=== PATIENT | female | born 1930 | race Caucasian/White ===

== ENCOUNTER 2016-07-28 16:13 | Emergency (ER) | payer MEDICARE, OTHER ==
[~2016-07-28] VITALS: Ht 167.6 cm; Wt 56.8 kg
[~2016-07-28 16:13] MED LIST: ACET-171 PO; AMOX-366 PO; ASPI-973 PO; CALC500T9 PO; CALC600T12 PO; CHOL100045 PO; CRAN1TAB5 PO; CYAN25003 SL; DOCU-41 PO; LACT1CAP67 PO; LEVO50TA83 PO; LIDO700A6 TP; LOPE2CAP PO; LORA0.5T PO; METH500T5 PO; ONDA4TAB9 PO; POLY17PO6 PO; SENN8.6C6 PO
[2016-07-28 16:32] VITALS: BP 200/82; PULSE 90; RESP 20; O2SAT 96
[2016-07-28 16:49] LABS: BASOPHILS % (AUTO) 0.2 % (0-3); EOSINOPHILS % (AUTO) 2.1 % (0-5); Mean Corpuscular Hemoglobin 29.7 pg (27.0-35.0); NEUTROPHILS % (AUTO) 84.6 % (40-74); Platelet Count 240 bil/L (150-400)
[2016-07-28 17:01] VITALS: BP 140/60; PULSE 88; RESP 16; O2SAT 96
[2016-07-28 17:14] LABS: TROPONIN T < 0.010 ug/L (0.0-0.011)
--- NOTE | 2016-07-28 17:39 | DRSVH ---
PROCEDURE: X-RAY CHEST ONE VIEW, PORTABLE ([id number]) INDICATIONS: sob TECHNIQUE: One view of the chest was acquired. COMPARISON: [facility], CR, XR CHEST 1VW (PORTABLE), 09/16/2015, 9:13. FINDINGS: Surgical changes and devices: Cholecystectomy clips. Lungs and pleura: No pleural effusions or pneumothorax. Lungs are clear of acute opacities. Multip le calcified nodules projecting over the right lung is stable in appearance. Mediastinum: Mediastinal contours appear normal. Heart size is normal. Bones and chest wall: No suspicious bony lesions. Overlying soft tissues appear unremarkable. IMPRESSION: No acute cardiopulmonary disease process. Dictated by: Blanca Arnold MD, PhD on 07/28/2016 at 17:37 Approved by: Blanca Arnold MD, PhD on 07/28/2016 at 17:37
--- NOTE | 2016-07-28 17:57 | ED.REPORT ---
HPI-URI / Cough / Cold Date of Service Jul 28, 2016 ED Provider: Ramos Rhodes DO This patient is a demented 85 year old female with a history of hypertension and chronic atrial fibrillation is brought in by EMS with flu-like symptoms that started 2 days ago. She also complains of myalgias, fever, cough, and fatigue. She denies chest pain. The patient received her seasonal influenza immunizations this year. She denies a history of COPD, asthma, or emphysema. Dena Matthews sent her to ED for a flu workup. Nursing Notes Stated Complaint: FEVER Chief Complaint: FLU/Cold Symptoms Nursing Notes Reviewed: Yes Allergies: Coded Allergies: alendronate sodium (Verified Allergy, Severe, 01/07/15) iodine (Verified Allergy, Severe, 01/07/15) promethazine (Verified Allergy, Severe, 01/07/15) vitamin E (d-alpha tocopherol) (Verified Allergy, Severe, 01/07/15) Can take internally, but not on the skin Shellfish (Verified Allergy, Intermediate, vomiting, 01/07/15) asparagus (Verified Allergy, Mild, Nausea,Vomiting, 01/07/15) SOAPCLEAN (Verified Allergy, Unknown, 01/07/15) etodolac (Verified Allergy, Unknown, 01/07/15) formaldehyde (Verified Allergy, Unknown, 01/07/15) oxycodone HCl (Verified Allergy, Unknown, nausea and vomiting, 01/07/15) acetaminophen (Verified Adverse Reaction, Intermediate, nausea and vomiting, 01/07/15) Uncoded Allergies: Clorox (Allergy, Intermediate, Rash, 03/24/11) Harsh Detergents (Allergy, Mild, Rash, 03/24/11) SHRIMP (Allergy, Unknown, 01/06/15) SOAPS (Allergy, Unknown, 01/06/15) Scheduled Amoxicillin/Clav K 875-125 mg (Augmentin 875-125 mg) 1 Each Tablet 1 TABLET PO BID Aspirin (Aspirin) 81 Mg Tablet 81 MG PO DAILY Calcium Carbonate (Calcium) 600 Mg Tablet 600 MG PO BID Cholecalciferol (Vitamin D3) (Vitamin D) 1,000 Unit Capsule 1,000 UNIT PO DAILY Cranberry Conc/C/Bacill Coag (Cranberry Tablet) 1 Each Tablet 1 EACH PO DAILY Cyanocobalamin (Vitamin B-12) (Vitamin B-12) 2,500 Mcg Tab.subl 2,500 MCG SL DAILY Lactobacillus Combination No.4 (Probiotic) 1 Each Capsule 1 EACH PO DAILY Levothyroxine (Synthroid) 50 Mcg Tablet 37.5 MCG PO DAILYAC Lidocaine (Lidoderm) 700 Mg Adh..patch 1 PATCH TP DAILY apply in the am and remove twelve hours later, pt home dose is a 5% lidoderm patch Methylcellulose (Citrucel) 500 Mg Tablet 500 MG PO DAILY Scheduled PRN Acetaminophen (Acetaminophen) 500 Mg Tablet 500 MG PO q8 PRN PRN For Pain Calcium Carbonate (Tums) 500 Mg Tab.chew 500-1,000 MG PO PRN PRN PRN For Dyspepsia or Heartburn Docusate Sodium (Colace) 100 Mg Capsule 250 MG PO DAILY PRN PRN For Constipation Loperamide (Loperamide) 2 Mg Capsule 2 MG PO Q4H PRN PRN For Diarrhea or Loose Stool give one capsule after each loose stool Lorazepam (Lorazepam) 0.5 Mg Tablet 0.5 MG PO q8 PRN PRN For Anxiety use at night for insomnia, use every 8 hours as needed for anxiety Ondansetron ODT (Zofran ODT) 4 Mg Tablet 4 MG PO QID PRN PRN For Nausea Polyethylene Glycol 3350 (Miralax) 17 Gm Powd.pack 17 GM PO PRN PRN PRN For Constipation Sennosides (Senna) 8.6 Mg Capsule 17.2 MG PO PRN For Constipation General Time Seen by MD: 17:57 Chief Complaint Fever Hx Obtained From: Patient, EMS Arrived By: Ambulance Onset Occurred: 2 days ago Symptom Duration: Since onset Severity: Current: No pain currently Severity: Maximum: No pain Pertinent Negative: Pt denies other symptoms Context: Immunization Status General: Unknown Recent Healthcare: No recent hospitalization, Recent doctor visit Similar Sx Previous: Yes Past Medical History Past Medical History Notes: PCP: Dr. Calvillo Past Medical History Dementia Hx of falls Crohn's Disease IBS Anxiety Arthritis Vitamin B12 deficiency. Vitamin B12 level 157.9 (June 28, 2011). Reports: GERD, Hyperlipidemia, Hypertension Reports: Atrial fibrillation, Thyroid disease Past Surgical History Cath ablation for PSVT Partial bowel resection Reports: Appendectomy, Cholecystectomy Smoking History Never Smoker Social History Alcohol Use: Denies alcohol use Drug Use: Denies drug use Other Social History: Lives in [facility] Ambulatory Status Independent Review of Systems Constitutional: Reports: Fatigue, Fever Respiratory: Reports: Non-productive cough Complete sys rev & neg: except as marked. Cardiovascular: Denies: Chest pain Musculoskeletal: Reports: Myalgia Physical Exam Initial Vital Signs Vital Signs (First) Date Time Temp Pulse Resp B/P Pulse Ox O2 Delivery O2 Flow Rate FiO2 07/28/16 16:32 37.4 90 20 200/82 96 Nasal Cannula 2 Initial VS: Reviewed Head / Eyes: Atraumatic, Normocephalic, PERRL Neck: Supple, Non-tender, Full range of motion Abdomen / GI: Soft, Non-tender Extremities: Vascular intact, Neuro intact Skin: Warm, Dry, No cyanosis Neurologic: Alert, Oriented, Nonfocal Psychiatric: Mood/affect normal, Behavior normal, Normal thought content General/Constitutional: Awake, Alert, Well developed ENT: Atraumatic, Airway patent Respiratory / Chest: Atraumatic, No respiratory distress Wheezing / Retractions: Positive: Wheezing mild (Faint left upper lobe) Bronchospasms Cardiovascular: Heart rate NL, Regular rhythm, Heart sounds NL, No murmurs Interpretation & Diagnostics Interpretation & Diagnostics: POSITIVE FOR FLU A NEGATIVE FOR FLU B Lab Results Interpretation Result Diagram: 07/28/16 1623 07/28/16 1623 Test 07/28/16 16:23 07/28/16 18:07 07/28/16 19:29 White Blood Count 10.3th/mm3 (3.8-10.1) Red Blood Count 4.71mil/mm3 (3.90-5.20) Hemoglobin 14.0g/dL (12.0-15.6) Hematocrit 41.0% (35.0-46.0) Mean Corpuscular Volume 87.0fL (81-100) Mean Corpuscular Hemoglobin 29.7pg (27.0-35.0) Mean Corpuscular Hemoglobin Concent 34.1% (32.0-37.0) Red Cell Distribution Width 13.6% (12.3-15.4) Platelet Count 240bil/L (150-400) Neutrophils (%) (Auto) 84.6% (40-74) Lymphocytes (%) (Auto) 5.7% (14-46) Monocytes (%) (Auto) 7.0% (4-12) Eosinophils (%) (Auto) 2.1% (0-5) Basophils (%) (Auto) 0.2% (0-3) Sodium Level 135mEq/L (134-144) Potassium Level 3.6mEq/L (3.5-5.2) Chloride Level 96mEq/L (97-108) Carbon Dioxide Level 22mmol/L (18-29) Blood Urea Nitrogen 12mg/dL (8-27) Creatinine 0.42mg/dL (0.57-1.00) Estimat Glomerular Filtration Rate 205mL/min (>59) Glucose Level 131mg/dL (60-99) Calcium Level 9.0mg/dL (8.5-10.1) Total Bilirubin 0.3mg/dL (0.0-1.2) Aspartate Amino Transf (AST/SGOT) 17U/L (0-50) Alanine Aminotransferase (ALT/SGPT) 10U/L (0-32) Alkaline Phosphatase 115U/L (25-165) Troponin T < 0.010ug/L (0.0-0.011) Pro-B-Type Natriuretic Peptide 1510pg/mL (0-738) Total Protein 6.5g/dL (6.4-8.4) Albumin 3.6g/dL (3.4-5.0) Urine Color Straw (YELLOW) Urine Appearance Clear (CLEAR,HAZY) Urine pH 6.0 (5.0-8.0) Urine Specific [place] 1.015 (1.003-1.035) Urine Protein Negativemg/dL (NEG,TRACE) Urine Glucose (UA) Negativemg/dL (NEGATIVE) Urine Ketones Negativemg/dL (NEGATIVE) Urine Occult Blood Small (NEGATIVE) Urine Nitrite Negative (NEGATIVE) Urine Bilirubin Negative (NEGATIVE) Urine Urobilinogen Normalmg/dL (NORMAL) Urine Leukocyte Esterase Negative (NEGATIVE) Urine RBC 3-10/hpf (0-2) Urine WBC 0-5/hpf (0-5) Urine Epithelial Cells Occasional/hpf (NONE-MOD) Urine Crystals None seen (NONE SEEN) Urine Bacteria Few/hpf (NONE-FEW) Urine Hyaline Casts None/lpf (NONE) Urine Granular Casts None seen (NONE SEEN) Urine Waxy Casts None seen (NONE SEEN) Urine Red Blood Cell Casts None seen (NONE SEEN) Urine White Blood Cell Casts None seen (NONE SEEN) Urine Mucus None seen (None Seen) Urine Trichomonas None seen (NONE SEEN) Urine Yeast None (NONE SEEN) Urinalysis Comment None Urine Culture Reflexed Not indicated Lactic Acid Level 1.6mmol/L (0.4-2.0) ECG Interpretation ECG Interpretation: atrial fibrillation, Rate 85 Nonspecific T abnormalities Time: 17:30 Interpreted by: ED physician X-Ray Chest Interpretation Chest Xray Interpretation: IMPRESSION: No acute cardiopulmonary disease process. Dictated by: Blanca Arnold MD, PhD on 07/28/2016 at 17:37 Interpretation / Wet Read by: Interpret - Radiologist Re-Eval/Medical Decision Source of Hx: Old records, EMS Re-Evaluation/Progress : Time of Eval: 20:04 Patient Status: Condition improved Re-Evaluation/Progress Note: Pt. rechecked. Discussed diagnosis of influenza and plan to start Tamiflu. She is feeling better and wants to go home. Ready for discharge. Pt. understands and agrees with plan. All questions have been addressed. Counseled Regarding: Diagnosis, Lab results, Need for follow-up, When/why to return to ED Discharge & Departure Impression: Primary Impression: Influenza due to influenza A virus Disposition: Home Discharge Condition All VS Reviewed: Yes Condition: Stable Patient Instructions: Influenza (ED) Additional Instructions: Thank you for entrusting your care with us today. You have influenza A. Take Tamiflu twice a day for 5 days. Drink plenty of fluids. Take your antipyretics as directed by your primary care provider. Do not take any aspirin. Follow up with your primary care provider next week for further evaluation. Return to the emergency room if you develop a fever, chills, worsening cough, shortness of breath, or any other concerning or new symptoms. Referrals: Eh Kirk MD (PCP) Scribe Attestation Portions of this note were transcribed by Lucy Reinoso and Surekha Ha I, Dr. Rhodes personally performed the history, physical exam and medical decision-making ; I reviewed and confirmed the accuracy of the information in the transcribed note. Signed by: Lucy Reinoso and Ashley Rm, 07/28/2016 and 213 copies to: Eh Kirk MD, Todd P DO Jul 28, 2016 17:57 Iva Reinoso [Lucy] Jul 28, 2016 18:42 Surekha Ha Jul 28, 2016 21:37
[2016-07-28] MEDS ORDERED: Albuterol-Ipratropium 3 mL Inhalation Solution NEB ONE (18:40)
[2016-07-28] MEDS ORDERED: 0.9% Sodium Chloride 1,000 ML IV ONE (18:40)
[2016-07-28 19:06] LABS: APPEARANCE,URINE CLEAR (CLEAR,HAZY); COLOR,URINE STRAW (YELLOW); OCCULT BLOOD,URINE SMALL (NEGATIVE); UROBILINOGEN,URINE NORMAL (NORMAL)
[2016-07-28 20:11] VITALS: PULSE 78; RESP 24; O2SAT 87
[2016-07-28 21:05] VITALS: BP 185/89; PULSE 93; RESP 20; O2SAT 94
== END 2016-07-28 21:06 | disposition home or self-care (01) ==
LOC: EDUNIT# 16:13 → EDBD 16:13 → SED 16:13
DX: J10.89 Influenza due to other identified influenza virus with other manifestations (principal); M79.1 Myalgia; R50.9 Fever, unspecified; R05 Cough; R53.83 Other fatigue; K21.9 Gastro-esophageal reflux disease without esophagitis; E78.5 Hyperlipidemia, unspecified; I10 Essential (primary) hypertension; I48.2 Chronic atrial fibrillation; E03.9 Hypothyroidism, unspecified; F03.90 Unspecified dementia, unspecified severity, without behavioral disturbance, psychotic disturbance, mood disturbance, and anxiety; Z79.82 Long term (current) use of aspirin; Z88.8 Allergy status to other drugs, medicaments and biological substances; Z91.041 Radiographic dye allergy status; Z88.6 Allergy status to analgesic agent; Z88.5 Allergy status to narcotic agent
CPT/HCPCS: 36415; 71010; 80053; 81000; 83605; 83880; 84484; 85025; 87804; 96360; 99285; J7030; J7620

== ENCOUNTER 2016-08-02 13:23 | Inpatient (IN) | payer MEDICARE, OTHER ==
[~2016-08-02] VITALS: Ht 162.6 cm; Wt 53.6 kg
[2016-08-02] VITALS (8 sets, daily range): BP systolic 142–177; BP diastolic 45–87; PULSE 66–81; RESP 16–20; O2SAT 95–99
[2016-08-02] MEDS ORDERED: 0.9% Sodium Chloride 1,000 ML IV ONE ×2 (13:34→15:55)
--- NOTE | 2016-08-02 13:34 | ED.REPORT ---
HPI-General Illness Date of Service Aug 02, 2016 ED Provider: Hipolito Plasencia Patient is an 85 year old female who presents to the ED via EMS from [facility] complaining of worsening diarrhea onset 5 days ago. Associated symptoms include headache, weakness, decreased appetite, abdominal pain, dysuria, cough, and neck pain. She denies nausea, vomiting, fever, or any other symptoms. Patient has a history of Crohn's disease. She was diagnosed with the flue 5 days ago. Nursing Notes Stated Complaint: DIARRHEA Chief Complaint: FLU/Cold Symptoms Nursing Notes Reviewed: Yes Allergies: Coded Allergies: alendronate sodium (Verified Allergy, Severe, 01/07/15) iodine (Verified Allergy, Severe, 01/07/15) promethazine (Verified Allergy, Severe, 01/07/15) vitamin E (d-alpha tocopherol) (Verified Allergy, Severe, 01/07/15) Can take internally, but not on the skin Shellfish (Verified Allergy, Intermediate, vomiting, 01/07/15) asparagus (Verified Allergy, Mild, Nausea,Vomiting, 01/07/15) SOAPCLEAN (Verified Allergy, Unknown, 01/07/15) etodolac (Verified Allergy, Unknown, 01/07/15) formaldehyde (Verified Allergy, Unknown, 01/07/15) oxycodone HCl (Verified Allergy, Unknown, nausea and vomiting, 01/07/15) acetaminophen (Verified Adverse Reaction, Intermediate, nausea and vomiting, 01/07/15) Uncoded Allergies: Clorox (Allergy, Intermediate, Rash, 03/24/11) Harsh Detergents (Allergy, Mild, Rash, 03/24/11) SHRIMP (Allergy, Unknown, 01/06/15) SOAPS (Allergy, Unknown, 01/06/15) Scheduled Aspirin (Aspirin) 81 Mg Tablet 81 MG PO DAILY Calcium Carbonate/Mag Hydrox (Antacid Chewable Tablet) 1 Each Tab.chew 2 EACH PO BID Cyanocobalamin (Vitamin B-12) (Vitamin B-12) 2,500 Mcg Tab.subl 2,500 MCG SL DAILY Hydrocodone-Acetaminophen 5-325 mg (Hydrocodone-Acetaminophen 5-325 mg) 1 Each Tablet 1 TAB PO BID at 1400 and 2000 Lactobacillus Combination No.4 (Probiotic) 1 Each Capsule 1 EACH PO DAILY Levothyroxine (Levothyroxine) 75 Mcg Tablet 37.5 MG PO DAILY Lorazepam (Lorazepam) 0.5 Mg Tablet 0.5 MG PO HS Melatonin/Pyridoxine (Melatonin 3 mg Tablet) 1 Each Tablet 1 EACH PO HS Methylcellulose (Citrucel) 500 Mg Tablet 500 MG PO DAILY Omeprazole (Omeprazole) 20 Mg Capsule.dr 20 MG PO DAILY Scheduled PRN Acetaminophen (Acetaminophen) 500 Mg Tablet 500 MG PO q8 PRN PRN For Pain Calcium Carbonate/Mag Hydrox (Antacid Chewable Tablet) 1 Each Tab.chew 1 EACH PO DAILY PRN PRN For Dyspepsia or Heartburn Docusate Sodium (Colace) 100 Mg Capsule 250 MG PO DAILY PRN PRN For Constipation Hydrocodone-Acetaminophen 5-325 mg (Hydrocodone-Acetaminophen 5-325 mg) 1 Each Tablet 1 TABLET PO q6 hours PRN PRN For Pain Ibuprofen (Ibuprofen) 200 Mg Capsule 200-400 MG PO q6 hours PRN PRN Headache Loperamide (Loperamide) 2 Mg Capsule 2 MG PO Q4H PRN PRN For Diarrhea or Loose Stool give one capsule after each loose stool Lorazepam (Lorazepam) 1 Mg Tablet 0.5 MG PO q8 hours PRN PRN For Anxiety Ondansetron ODT (Zofran ODT) 4 Mg Tablet 4 MG PO QID PRN PRN For Nausea Polyethylene Glycol 3350 (Miralax) 17 Gm Powd.pack 17 GM PO DAILY PRN PRN For Constipation General Time Seen by MD: 13:33 [facility] Chief Complaint Diarrhea Hx Obtained From: Patient, EMS Arrived By: Ambulance Sudden in Onset?: Yes Onset Occurred: 5 days ago Symptom Duration: Since onset Past Medical History Past Medical History Notes: PCP: Dr. Calvillo DNR limited Past Medical History Dementia Hx of falls Crohn's Disease IBS Anxiety Arthritis Vitamin B12 deficiency. Vitamin B12 level 157.9 (June 28, 2011). Hypothyroid Reports: GERD, Hyperlipidemia, Hypertension Reports: Atrial fibrillation, Thyroid disease Past Surgical History Cath ablation for PSVT Partial bowel resection Reports: Appendectomy, Cholecystectomy Smoking History Never Smoker Social History Alcohol Use: Denies alcohol use Drug Use: Denies drug use Other Social History: Lives in [facility] Ambulatory Status Independent Review of Systems +decreased appetite Full Review of Systems Constitutional: Reports: Weakness - generalized, Denies: Chills, Fever Respiratory: Reports: Non-productive cough GI: Reports: Abdominal pain, Diarrhea, Denies: Nausea, Vomiting Female: Reports: Dysuria Musculoskeletal: Reports: Neck pain Neurologic: Reports: Headache Complete sys rev & neg: except as marked. Physical Exam Vital Signs Vital Signs Date Time Temp Pulse Resp B/P Pulse Ox O2 Delivery O2 Flow Rate FiO2 08/02/16 17:10 74 20 176/68 96 Room Air 08/02/16 16:31 69 20 169/66 97 Room Air 08/02/16 15:30 71 18 177/45 99 Room Air 08/02/16 14:05 81 20 142/59 95 Room Air 08/02/16 13:27 36.7 71 18 150/72 97 Room Air Initial VS: Reviewed Head / Eyes: Atraumatic, Normocephalic Skin: Warm, Dry Neurologic: Alert, Oriented, Nonfocal Psychiatric: Mood/affect normal, Behavior normal, Normal thought content ENT: Mucous membranes moist Neck: Supple Respiratory / Chest: Breath sounds NL, Breath sounds = bilat, No respiratory distress Cardiovascular: Heart rate NL, Regular rhythm, Heart sounds NL, No gallop, No murmurs, No rubs Abdomen: No guarding, BS normoactive, No palpable mass Tenderness/Guarding/Rebound: Positive: Tender LLQ... Back: Non-tender Interpretation & Diagnostics Lab Results Interpretation Result Diagram: 08/02/16 1345 08/02/16 1345 Test 08/02/16 13:45 08/02/16 14:25 08/02/16 15:23 White Blood Count 16.6th/mm3 (3.8-10.1) Red Blood Count 4.37mil/mm3 (3.90-5.20) Hemoglobin 12.9g/dL (12.0-15.6) Hematocrit 37.3% (35.0-46.0) Mean Corpuscular Volume 85.4fL (81-100) Mean Corpuscular Hemoglobin 29.5pg (27.0-35.0) Mean Corpuscular Hemoglobin Concent 34.6% (32.0-37.0) Red Cell Distribution Width 13.4% (12.3-15.4) Platelet Count 228bil/L (150-400) Neutrophils (%) (Auto) 81.3% (40-74) Lymphocytes (%) (Auto) 8.8% (14-46) Monocytes (%) (Auto) 8.7% (4-12) Eosinophils (%) (Auto) 0.6% (0-5) Basophils (%) (Auto) 0.2% (0-3) Sodium Level 138mEq/L (134-144) Potassium Level 2.9mEq/L (3.5-5.2) Chloride Level 98mEq/L (97-108) Carbon Dioxide Level 23mmol/L (18-29) Blood Urea Nitrogen 14mg/dL (8-27) Creatinine 0.40mg/dL (0.57-1.00) Estimat Glomerular Filtration Rate 217mL/min (>59) Glucose Level 140mg/dL (60-99) Calcium Level 8.3mg/dL (8.5-10.1) Magnesium Level 1.3mg/dL (1.6-2.6) Total Bilirubin 0.5mg/dL (0.0-1.2) Aspartate Amino Transf (AST/SGOT) 17U/L (0-50) Alanine Aminotransferase (ALT/SGPT) 10U/L (0-32) Alkaline Phosphatase 85U/L (25-165) Troponin T < 0.010ug/L (0.0-0.011) Total Protein 6.2g/dL (6.4-8.4) Albumin 3.1g/dL (3.4-5.0) Hold [place]ila Top Tube Received (Received) Lactic Acid Level 2.6mmol/L (0.4-2.0) Urine Color Yellow (YELLOW) Urine Appearance Clear (CLEAR,HAZY) Urine pH 6.0 (5.0-8.0) Urine Specific [place] 1.015 (1.003-1.035) Urine Protein 30mg/dL (NEG,TRACE) Urine Glucose (UA) Negativemg/dL (NEGATIVE) Urine Ketones Negativemg/dL (NEGATIVE) Urine Occult Blood Trace (NEGATIVE) Urine Nitrite Negative (NEGATIVE) Urine Bilirubin Negative (NEGATIVE) Urine Urobilinogen Normalmg/dL (NORMAL) Urine Leukocyte Esterase Negative (NEGATIVE) Urine RBC 0-2/hpf (0-2) Urine WBC 0-5/hpf (0-5) Urine Epithelial Cells Few/hpf (NONE-MOD) Urine Crystals None seen (NONE SEEN) Urine Bacteria Few/hpf (NONE-FEW) Urine Hyaline Casts Rare/lpf (NONE) Urine Granular Casts None seen (NONE SEEN) Urine Waxy Casts None seen (NONE SEEN) Urine Red Blood Cell Casts None seen (NONE SEEN) Urine White Blood Cell Casts None seen (NONE SEEN) Urine Mucus Present (None Seen) Urine Trichomonas None seen (NONE SEEN) Urine Yeast None (NONE SEEN) Urinalysis Comment None Urine Culture Reflexed Not indicated ECG Interpretation ECG Interpretation: atrial fibrillation rate 90 nonspecific T abnormalties, lateral leads Time: 13:54 Interpreted by: ED physician X-Ray Chest Interpretation Chest Xray Interpretation: IMPRESSION: No acute cardiopulmonary disease. Dictated by: Сергей Walker RRA Interpreted: Blanca Arnold MD on 08/02/2016 at 14:47 Transcribed by: MARJORIE on 08/02/2016 at 14:47 View: Portable, 1 view Interpretation / Wet Read by: Interpret - Radiologist CT Abd / Pelvis Interpretation IMPRESSION: 1. Patchy opacities in the dependent lung bases suspicious for aspiration/infection. 2. Findings suspicious for intrahepatic biliary ductal dilatation poorly characterized given the lack of intravenous contrast. If further characterization is warranted, right upper quadrant ultrasound is recommended. 3. Probable prior appendectomy. Diverticulosis. No acute diverticulitis. Dictated by: Maryann Lewis M.D. on 08/02/2016 at 17:15 Approved by: Maryann Lewis M.D. on 08/02/2016 at 17:20 Study type: Abdominal CT no contrast Interpretation / Wet Read by: Interpret - Radiologist Re-Eval/Medical Decision Med Decision/Clinical Course Elderly female with several days of profuse watery diarrhea generalized weakness recent influenza. She is noted and elevated lactate and elevated white blood cell count. Chest x-ray was negative however there is concern for possible infiltrates on CT of the abdomen and pelvis which was done secondary to abdominal pain. Her unable to obtain a stool specimen, we have obtained blood cultures, she was given 2 L of normal saline and started on Rocephin and azithromycin. She will be admitted to hospitalist service Time of Eval: 15:43 Re-Evaluation/Progress Note: Rechecked patient. She reports she has not had any more diarrhea, is feeling better, but still feels "crummy". Discussed desire for admission. Patient understands and agrees with plan. All questions addressed at this time. Time of Eval: 17:39 Re-Evaluation/Progress Note: Discussed plan for admission with abx based on CT report. Patient understands and agrees with plan. All questions addressed at this time. Consultation : Referral / Consult Name: Bradley Herrera MD Consulted With: Hospitalist Call Returned at: 17:57 Product Management Analyst: Will see patient, Agrees with eval, Agrees with plan, Accepts admit Note: Discussed patient's case. Accepts admit. Counseled Regarding: Diagnosis, Lab results, Need for admission Discharge & Departure Primary Impression: Pneumonia Additional Impressions: Dehydration Generalized weakness Diarrhea Disposition: ADMITTED TO HOSPITAL Referrals: Eh Kirk MD (PCP) Scribe Attestation Portions of this note were transcribed by Bryon Fabian. I, Dr. Plasencia personally performed the history, physical exam and medical decision-making; I reviewed and confirmed the accuracy of the information in the transcribed note. Signed by: Bryon Fabian 08/02/16, 1800 copies to: Eh Kirk MD, Donald L MD Aug 02, 2016 13:34 BRYON FABIAN Aug 02, 2016 13:40
[2016-08-02] MEDS ORDERED: Ondansetron 2 mg/mL 2 mL Inj IV PRN (13:35)
[2016-08-02 14:01] LABS: BASOPHILS % (AUTO) 0.2 % (0-3); EOSINOPHILS % (AUTO) 0.6 % (0-5); MONOCYTES % (AUTO) 8.7 % (4-12); Mean Corpuscular Hemoglobin 29.5 pg (27.0-35.0); Mean Corpuscular Volume 85.4 fL (81-100); NEUTROPHILS % (AUTO) 81.3 % (40-74); Platelet Count 228 bil/L (150-400)
[2016-08-02 14:31] LABS: TROPONIN T < 0.010 ug/L (0.0-0.011)
[2016-08-02 14:34] LABS: Magnesium 1.3 mg/dL (1.6-2.6)
--- NOTE | 2016-08-02 14:48 | DRSVH ---
PROCEDURE: X-RAY CHEST ONE VIEW, PORTABLE ([id number]) INDICATIONS: leukocytosis TECHNIQUE: One view of the chest was acquired. COMPARISON: [facility], CR, XR CHEST 1VW (PORTABLE), 07/28/2016, 16:59. FINDINGS: Surgical changes and devices: None visible. Lungs and pleura: No pleural effusions or pneumothorax. Lungs are clear. No granulomatous changes redemonstrated. Mediastinum: Mediastinal contours appear normal. Heart size is normal. Bones and chest wall: No suspicious bony lesions. Overlying soft tissues appear unremarkable. IMPRESSION: No acute cardiopulmonary disease. Dictated by: Сергей Walker RRA Interpreted: Blanca Arnold MD on 08/02/2016 at 14:47 Transcribed by: MARJORIE on 08/02/2016 at 14:47 Approved by: Blanca Arnold MD, PhD on 08/02/2016 at 17:05
[2016-08-02] MEDS ORDERED: Potassium Chloride 20 mEq SR Tablet PO ONE (15:00)
[2016-08-02 15:52] LABS: APPEARANCE,URINE CLEAR (CLEAR,HAZY); COLOR,URINE YELLOW (YELLOW); OCCULT BLOOD,URINE TRACE (NEGATIVE); UROBILINOGEN,URINE NORMAL (NORMAL)
--- NOTE | 2016-08-02 17:25 | DRSVH ---
PROCEDURE: CT ABDOMEN AND PELVIS WITHOUT CONTRAST ([id number]) INDICATIONS: abdominal pain LLQ TECHNIQUE: Noncontrast 5 mm thick sections acquired from the diaphragms to the symphysis. 5 mm coronal and sagi ttal reformats were then performed. For radiation dose reduction, the following was used: automated exposure control, adjustment of mA and/or kV according to patient size. COMPARISON: None. FINDINGS: Image quality: ABDOMEN: Lung bases: Patchy airspace opacities are present in the dependent lung bases bilaterally. Solid organs: Liver and spleen are normal in size. There is likely intrahepatic biliary ductal dilat ation which is poorly characterized given the lack of intravenous contrast. Gallbladder is surgically absent. Pancreas is normal in contours. No adrenal nodules. Kidneys are normal in size, without h ydronephrosis or nephrolithiasis. Peritoneum and bowel: Unenhanced bowel loops demonstrate normal wall thickness and caliber. The appe ndix is not visualized; however surgical clips are present in the region of the cecum in the lower qu adrant suggesting prior appendectomy. There are scattered sigmoid diverticula. No evidence for divert iculitis. No free fluid or air. Nodes and vessels: No retroperitoneal or mesenteric adenopathy by size criteria. Aorta and inferior vena cava are normal in caliber. There are scattered atheromatous calcifications throughout the aort a and iliac arteries bilaterally. Miscellaneous: No ventral hernias. PELVIS: Genitourinary: Bladder wall thickness is normal. Miscellaneous: No inguinal hernias or adenopathy. Bones: No suspicious bony lesions. No vertebral body compression fractures. IMPRESSION: 1. Patchy opacities in the dependent lung bases suspicious for aspiration/infection. 2. Findings suspicious for intrahepatic biliary ductal dilatation poorly characterized given the lack of intravenous contrast. If further characterization is warranted, right upper quadrant ultrasound i s recommended. 3. Probable prior appendectomy. Diverticulosis. No acute diverticulitis. Dictated by: Maryann Lewis M.D. on 08/02/2016 at 17:15 Approved by: Maryann Lewis M.D. on 08/02/2016 at 17:20
[2016-08-02] MEDS ORDERED: cefTRIAXone Inj 2 GM in IV Premix 1 EACH IV ONE (17:40)
[2016-08-02] MEDS ORDERED: Azithromycin Inj 500 MG in Dextrose 5% w/Vial Mate 250 ML IV ONE (17:40)
[2016-08-02] MEDS ORDERED: cefTRIAXone Inj 2,000 MG in Dextrose 5% Minibag Plus 50 ML IV SCH (17:42)
[2016-08-02] MEDS ORDERED: LORA1TAB PO (18:12)
[2016-08-02] MEDS ORDERED: LEVO75TA4 PO (18:12)
[2016-08-02] MEDS ORDERED: CALC-846 PO ×2 (18:12)
[2016-08-02] MEDS ORDERED: OMEP20CA11 PO (18:12)
[2016-08-02] MEDS ORDERED: IBUP200C PO (18:12)
[2016-08-02] MEDS ORDERED: METH500T5 PO (18:12)
[2016-08-02] MEDS ORDERED: HYDR-4003 PO ×2 (18:12)
[2016-08-02] MEDS ORDERED: MELA1TAB11 PO (18:12)
--- NOTE | 2016-08-02 18:47 | NUR ---
Admit Pt admitted to [facility] [place] rm 3020 via ED, report received from Isabel Aparicio RN. Pt arrived via stretcher, was unable to transfer self.
[2016-08-02] MEDS ORDERED: 0.9% Sodium Chloride 100 ML ONE (20:40)
[2016-08-02] MEDS: HYDROcodone-APAP 5-325 mg Tablet PO PRN (21:39)
--- NOTE | 2016-08-02 21:39 | PCM.HPMED ---
Subjective Date of Service Aug 02, 2016 Primary Provider: Admitting Physician: Bradley Herrera MD Primary Care Physician: Eh Kirk MD Attending Physician: Bradley Herrera MD Chief Complaint: Generalized weakness, diarrhea, poor appetite History of Present Illness: 85-year-old female w/ afib s/p ablation not AC, Crohn's disease s/p multiple bowel resections >20yrs ago, irritable bowel syndrome with chronic intermittent diarrhea presented constellation symptoms such as generalized weakness, LLQ pain , decreased appetite, diarrhea Patient visited ED 5days ago with flu-like symptoms that started 2 days prior to visit. She also complains of myalgias, fever, cough, and fatigue at that time , noticed in [place] A virus positive on swap, sent home with Tamiflu for 5 days. Since then patient has not been feeling well, developed diarrhea more than usual, also this AM, large amount, unknown characteristics. Patient also had intermittent cough, no phlegm, no difficulty breathing. Patient thinks that the cough has not been changed with the flu medicine. ROS: Patient denied chills fevers, nausea, vomiting, abdominal pain, dysuria/ frequency Emergency room, VS stable, [id number], HR70s, RR18, 97%on RA, afebrile. labs showed leukocytosis, hypokalemia, hypomagnesemia, mildly elevated lactate, CT abd obtained given LLQ pain pt complaind, which rather showes patchy infiltrate at lung bases, received Rocephin and azithromycin, KCL40. IVF started. Review of Systems: Pertinent positives as noted in history of present illness. All other systems were reviewed and are negative Allergies Coded Allergies: alendronate sodium (Verified Allergy, Severe, 01/07/15) iodine (Verified Allergy, Severe, 01/07/15) promethazine (Verified Allergy, Severe, 01/07/15) vitamin E (d-alpha tocopherol) (Verified Allergy, Severe, 01/07/15) Can take internally, but not on the skin Shellfish (Verified Allergy, Intermediate, vomiting, 01/07/15) asparagus (Verified Allergy, Mild, Nausea,Vomiting, 01/07/15) SOAPCLEAN (Verified Allergy, Unknown, 01/07/15) etodolac (Verified Allergy, Unknown, 01/07/15) formaldehyde (Verified Allergy, Unknown, 01/07/15) oxycodone HCl (Verified Allergy, Unknown, nausea and vomiting, 01/07/15) acetaminophen (Verified Adverse Reaction, Intermediate, nausea and vomiting, 01/07/15) Uncoded Allergies: Clorox (Allergy, Intermediate, Rash, 03/24/11) Harsh Detergents (Allergy, Mild, Rash, 03/24/11) SHRIMP (Allergy, Unknown, 01/06/15) SOAPS (Allergy, Unknown, 01/06/15) Home Medications Scheduled Aspirin (Aspirin) 81 Mg Tablet 81 MG PO DAILY Calcium Carbonate/Mag Hydrox (Antacid Chewable Tablet) 1 Each Tab.chew 2 EACH PO BID Cyanocobalamin (Vitamin B-12) (Vitamin B-12) 2,500 Mcg Tab.subl 2,500 MCG SL DAILY Hydrocodone-Acetaminophen 5-325 mg (Hydrocodone-Acetaminophen 5-325 mg) 1 Each Tablet 1 TAB PO BID at 1400 and 2000 for torn rotator cuff pain Lactobacillus Combination No.4 (Probiotic) 1 Each Capsule 1 EACH PO DAILY Levothyroxine (Levothyroxine) 75 Mcg Tablet 37.5 MG PO DAILY Lorazepam (Lorazepam) 0.5 Mg Tablet 0.5 MG PO HS Melatonin/Pyridoxine (Melatonin 3 mg Tablet) 1 Each Tablet 1 EACH PO HS Methylcellulose (Citrucel) 500 Mg Tablet 500 MG PO DAILY Omeprazole (Omeprazole) 20 Mg Capsule.dr 20 MG PO DAILY Scheduled PRN Acetaminophen (Acetaminophen) 500 Mg Tablet 500 MG PO q8 PRN PRN For Pain Calcium Carbonate/Mag Hydrox (Antacid Chewable Tablet) 1 Each Tab.chew 1 EACH PO DAILY PRN PRN For Dyspepsia or Heartburn Docusate Sodium (Colace) 100 Mg Capsule 250 MG PO DAILY PRN PRN For Constipation Hydrocodone-Acetaminophen 5-325 mg (Hydrocodone-Acetaminophen 5-325 mg) 1 Each Tablet 1 TABLET PO q6 hours PRN PRN For Pain Ibuprofen (Ibuprofen) 200 Mg Capsule 200-400 MG PO q6 hours PRN PRN Headache Loperamide (Loperamide) 2 Mg Capsule 2 MG PO Q4H PRN PRN For Diarrhea or Loose Stool give one capsule after each loose stool Lorazepam (Lorazepam) 1 Mg Tablet 0.5 MG PO q8 hours PRN PRN For Anxiety Ondansetron ODT (Zofran ODT) 4 Mg Tablet 4 MG PO QID PRN PRN For Nausea Polyethylene Glycol 3350 (Miralax) 17 Gm Powd.pack 17 GM PO DAILY PRN PRN For Constipation PMH Past Medical History Dementia Hx of falls Crohn's Disease IBS Anxiety Arthritis Vitamin B12 deficiency. Vitamin B12 level 157.9 (June 28, 2011). Hypothyroid Reports: GERD, Hyperlipidemia, Hypertension Reports: Atrial fibrillation, Thyroid disease Past Surgical History Cath ablation for PSVT Partial bowel resection Reports: Appendectomy, Cholecystectomy Smoking History Never Smoker Social History Alcohol Use: Denies alcohol use Drug Use: Denies drug use Other Social History: Lives in [facility] Ambulatory Status Independent Social History Hx Alcohol Use: No Hx Substance Use: No Hx Tobacco Use: No Smoking Status: Never Smoker Exam Vital Signs Vital Sign - Last Date Time Temp Pulse Resp B/P Pulse Ox O2 Delivery O2 Flow Rate FiO2 08/02/16 17:42 36.7 74 20 176/68 96 Room Air Lab and Diagnostics Result Diagram: 08/02/16 1345 08/02/16 1345 X-Rays, CTs and MRIs PROCEDURE: CT ABDOMEN AND PELVIS WITHOUT CONTRAST ([id number]) INDICATIONS: abdominal pain LLQ TECHNIQUE: Noncontrast 5 mm thick sections acquired from the diaphragms to the symphysis. 5 mm coronal and sagittal reformats were then performed. For radiation dose reduction, the following was used: automated exposure control, adjustment of mA and/or kV according to patient size. COMPARISON: None. FINDINGS: Image quality: ABDOMEN: Lung bases: Patchy airspace opacities are present in the dependent lung bases bilaterally. Solid organs: Liver and spleen are normal in size. There is likely intrahepatic biliary ductal dilatation which is poorly characterized given the lack of intravenous contrast. Gallbladder is surgically absent. Pancreas is normal in contours. No adrenal nodules. Kidneys are normal in size, without hydronephrosis or nephrolithiasis. Peritoneum and bowel: Unenhanced bowel loops demonstrate normal wall thickness and caliber. The appendix is not visualized; however surgical clips are present in the region of the cecum in the lower quadrant suggesting prior appendectomy. There are scattered sigmoid diverticula. No evidence for diverticulitis. No free fluid or air. Nodes and vessels: No retroperitoneal or mesenteric adenopathy by size criteria. Aorta and inferior vena cava are normal in caliber. There are scattered atheromatous calcifications throughout the aorta and iliac arteries bilaterally. Miscellaneous: No ventral hernias. PELVIS: Genitourinary: Bladder wall thickness is normal. Miscellaneous: No inguinal hernias or adenopathy. Bones: No suspicious bony lesions. No vertebral body compression fractures. IMPRESSION: 1. Patchy opacities in the dependent lung bases suspicious for aspiration/ infection. 2. Findings suspicious for intrahepatic biliary ductal dilatation poorly characterized given the lack of intravenous contrast. If further characterization is warranted, right upper quadrant ultrasound is recommended. 3. Probable prior appendectomy. Diverticulosis. No acute diverticulitis. Dictated by: Maryann Lewis M.D. on 08/02/2016 at 17:15 Approved by: Maryann Lewis M.D. on 08/02/2016 at 17:20 Assessment & Plan 85-year-old female w/ afib s/p ablation not AC, Crohn's disease s/p multiple bowel resections >20yrs ago, irritable bowel syndrome with chronic intermittent diarrhea presented constellation symptoms such as generalized weakness, LLQ pain , decreased appetite, diarrhea, persistent cough, acute, active #constitutional sx, mainly GI n/v/d, also persistent cough/sputum, POA, ddx; postflu PNA vs Tamiflu adverse reaction. CT abd/pelvis showed no signs of colitis. CXR showed bibasilar opacities atelectasis vs PNA. -pt finished Tamiflu as of today, pt maintained airways, require minimal O2, respiratory sx not worse or better, s/p Rocephin/azithromycin in ED. -will trends procalcitonin, wbc, fever curve, -will hold off abx and monitor sx closely, O2 supplement as needed target>95% -stool PCR when possible #hypokalemia, hypomag, POA, due to GI loss, s/p KCL40 in ED, EKG-afib, unchanged -replete target Mg>2, K>4 chronic, stable IBS, CD s/p bowel resection, benign abdomen on exam, CT abd no acute findings. afib s/p ablation not AC, seems persistent, monitor on telemetry. Hypothyroid, continue LT4 Hyperlipidemia, Hypertension, continue home med GERD, continue PPI dispo:Patient will be admitted with inpatient status with expectation of inpatient therapy for more than 2 midnights diet:cardiac dvt ppx:LMWH Full Code Time spent 65 minutes Bradley Herrera MD Aug 02, 2016 19:20
[2016-08-02] MEDS ORDERED: Polyethylene Glycol (PEG) 17 Gm Powder PO PRN (21:40)
[2016-08-02] MEDS ORDERED: Potassium Chloride 20 mEq/15 mL 15mL Oral Soln PO ONE (22:25)
[2016-08-02] MEDS ORDERED: Magnesium Sulf 2 Gm/50mL Water 2 GM in IV Premix 1 EACH IV ONE (22:25)
[2016-08-02] MEDS: guaiFENesin DM 200-20 mg/10 mL Syrup PO PRN (23:31)
--- NOTE | 2016-08-02 23:55 | NUR ---
Pain Pt complained of generalized pain /. Administered 1) [place] PO, effective. Pt resting in bed with eyes closed. Bed locked, low position. Will continue to monitor.
[2016-08-03 02:32] VITALS: BP 145/74; PULSE 63; RESP 18; O2SAT 96
[2016-08-03 05:53] VITALS: BP 132/63; PULSE 67; RESP 16; O2SAT 95
[2016-08-03] MEDS: guaiFENesin DM 200-20 mg/10 mL Syrup PO PRN ×3 (06:10→22:56)
[2016-08-03] MEDS: Pantoprazole 40 mg ER24 Tablet PO SCH (06:12)
[2016-08-03 06:14] LABS: BASOPHILS % (AUTO) 0.4 % (0-3); EOSINOPHILS % (AUTO) 2.6 % (0-5); MONOCYTES % (AUTO) 11.6 % (4-12); Mean Corpuscular Hemoglobin 29.1 pg (27.0-35.0); Mean Corpuscular Volume 88.3 fL (81-100); NEUTROPHILS % (AUTO) 75.1 % (40-74); Platelet Count 216 bil/L (150-400)
[2016-08-03 06:53] LABS: Magnesium 1.9 mg/dL (1.6-2.6); Phosphorus 2.6 mg/dL (2.5-4.9)
[2016-08-03] MEDS: HYDROcodone-APAP 5-325 mg Tablet PO SCH ×2 (08:37→19:45)
[2016-08-03 10:52] VITALS: BP 169/53; PULSE 69; RESP 19; O2SAT 94
--- NOTE | 2016-08-03 11:26 | PCM.PNMED ---
Subjective Date of Service Aug 03, 2016 Subjective Patient was stable overnight Denied any nausea, vomiting, abdominal pain Still intermittently coughing but denied difficulty breathing Exam Vital Signs Vital Sign - Last Date Time Temp Pulse Resp B/P Pulse Ox O2 Delivery O2 Flow Rate FiO2 08/03/16 10:52 36.7 69 19 169/53 94 Room Air Intake and Output 08/02/16 08/02/16 08/03/16 Cumulative From/Thru 15:00 23:00 07:00 08/02/16 13:27 - 08/03/16 06:09 Intake Total 2000 ml 50 ml 2050 ml Balance 2000 ml 50 ml 2050 ml Intake Oral 50 ml 50 ml IV Total 2000 ml 2000 ml # Voids 2 2 # Bowel Movements 0 0 Exam Frail elderly female comfortably laying down on the bed no JVD, MMM, no LAD RRR, nl s1, s2 no mrg Coarse breathing sounds, no wheezing/crackles S,ND,NT,normoactive BS+ warm, no edema, pulses 2/2 IVs and Medications Medications Reviewed: Medications were reviewed in detail Lab and Diagnostics Result Diagram: 08/03/16 0555 08/03/16 0555 X-Rays, CTs and MRIs PROCEDURE: CT ABDOMEN AND PELVIS WITHOUT CONTRAST ([id number]) INDICATIONS: abdominal pain LLQ TECHNIQUE: Noncontrast 5 mm thick sections acquired from the diaphragms to the symphysis. 5 mm coronal and sagittal reformats were then performed. For radiation dose reduction, the following was used: automated exposure control, adjustment of mA and/or kV according to patient size. COMPARISON: None. FINDINGS: Image quality: ABDOMEN: Lung bases: Patchy airspace opacities are present in the dependent lung bases bilaterally. Solid organs: Liver and spleen are normal in size. There is likely intrahepatic biliary ductal dilatation which is poorly characterized given the lack of intravenous contrast. Gallbladder is surgically absent. Pancreas is normal in contours. No adrenal nodules. Kidneys are normal in size, without hydronephrosis or nephrolithiasis. Peritoneum and bowel: Unenhanced bowel loops demonstrate normal wall thickness and caliber. The appendix is not visualized; however surgical clips are present in the region of the cecum in the lower quadrant suggesting prior appendectomy. There are scattered sigmoid diverticula. No evidence for diverticulitis. No free fluid or air. Nodes and vessels: No retroperitoneal or mesenteric adenopathy by size criteria. Aorta and inferior vena cava are normal in caliber. There are scattered atheromatous calcifications throughout the aorta and iliac arteries bilaterally. Miscellaneous: No ventral hernias. PELVIS: Genitourinary: Bladder wall thickness is normal. Miscellaneous: No inguinal hernias or adenopathy. Bones: No suspicious bony lesions. No vertebral body compression fractures. IMPRESSION: 1. Patchy opacities in the dependent lung bases suspicious for aspiration/ infection. 2. Findings suspicious for intrahepatic biliary ductal dilatation poorly characterized given the lack of intravenous contrast. If further characterization is warranted, right upper quadrant ultrasound is recommended. 3. Probable prior appendectomy. Diverticulosis. No acute diverticulitis. Dictated by: Maryann Lewis M.D. on 08/02/2016 at 17:15 Approved by: Maryann Lewis M.D. on 08/02/2016 at 17:20 Assessment & Plan 85-year-old female w/ afib s/p ablation not AC, Crohn's disease s/p multiple bowel resections >20yrs ago, irritable bowel syndrome with chronic intermittent diarrhea presented constellation symptoms such as generalized weakness, LLQ pain , decreased appetite, diarrhea, persistent cough, acute, active #constitutional sx, mainly GI n/v/d, also persistent cough/sputum, POA, ddx; postflu PNA vs Tamiflu adverse reaction. CT abd/pelvis showed no signs of colitis. CXR showed bibasilar opacities atelectasis vs PNA. -pt finished Tamiflu prior to admission, pt maintained airways, require minimal O2, respiratory sx not worse or better, s/p Rocephin/azithromycin in ED. -pt clinically stable with procalcitonin remained low, wbc trending down, remained afebrile, -continue to hold off abx and monitor sx closely, O2 supplement as needed target >95% -stool PCR when possible #hypokalemia, hypomag, POA, due to GI loss, s/p KCL40 in ED, EKG-afib, unchanged , normalized with repletion -replete if needed target Mg>2, K>4 chronic, stable IBS, CD s/p bowel resection, benign abdomen on exam, CT abd no acute findings. afib s/p ablation not AC, seems persistent, monitor on telemetry. Hypothyroid, continue LT4 Hyperlipidemia, Hypertension, continue home med GERD, continue PPI dispo:likely in 1-2days, appreciate PT eval. diet:cardiac, dvt ppx:LMWH Full Code VTE Mechanical Devices: Venous Foot Pump Time spent 35min Bradley Herrera MD Aug 03, 2016 11:26
--- NOTE | 2016-08-03 11:55 | NUR ---
Evaluation completed. Please go to "Notes" then click on "Assessments and Notes" (bottom left corner of screen). Then select appropriate discipline tab on top of screen.
[2016-08-03 14:35] VITALS: BP 163/74; PULSE 75; RESP 18; O2SAT 96
[2016-08-03] MEDS: HYDROcodone-APAP 5-325 mg Tablet PO PRN (15:29)
--- NOTE | 2016-08-03 16:08 | NUR ---
Shift note Pleasant pt, able to call for help when needed. Worked with ST today, diet changed to Soft [place] thick. Pt aware of change and has been compliant. Due to limited movement, pt requires Q2hr turns. Pt c/o severe pain in L shoulder from torn rotator cuff years past. MD aware. Pain meds available q4. Bed in low position, call light in reach, will continue with frequent rounding.
--- NOTE | 2016-08-03 16:22 | NUR ---
Social Work-initial assessment: Data:See initial assessment Pt is a 85 y/o female who was admitted on 08/02/16 for diarrhea per H&P. Pt's insurance is [facility] and PCP is Eh Kirk Md. EMR Reviewed. Pt's readmission score is 4. SW met with pt at bedside to discuss discharge planning, SW role explained. Pt resides at [facility] where she uses a w/c at baseline. Pt has no HH history, but has been to SNF. Pt has no prison care or VA benefits. SW discussed DPOA/ advanced directive and pt has completed this, SW encouraged a copy to be brought in. PT evaluation is pending. SW to follow up with [facility] tomorrow. SW will continue to follow. Assessment:Pt who resides at [facility]. Plan:Pt to likely discharge back to [facility]. SW to follow up with [facility] tomorrow. PT evaluation is pending.SW will continue to follow. JONAS Lawrence Addendum: 08/03/16 at 1625 by CARLOS BISHOP SS Amended: Links added.
--- NOTE | 2016-08-03 17:07 | NUR ---
Case Management: IMM explained to patient at 1614 but patient wanted me to speak with her daughter Xi Landry [phone] first. So I called Xi and explained IMM--she verbally expressed complete understanding. Pt then willing to sign IMM, original placed in chart, copy given to the patient. Lizzette Saba RN
[2016-08-03] MEDS: Ondansetron 2 mg/mL 2 mL Inj IVPUSH PRN (19:45)
[2016-08-03 19:57] VITALS: BP 201/93; PULSE 87; RESP 18; O2SAT 95
[2016-08-03] MEDS ORDERED: LORazepam 0.5 mg Tablet PO SCH (21:00)
--- NOTE | 2016-08-04 03:07 | NUR ---
Cough Pt complained of coughing. Administered Robitussin, effective. Resting with eyes closed. Will continue to monitor.
[2016-08-04] MEDS: HYDROcodone-APAP 5-325 mg Tablet PO PRN (03:15)
--- NOTE | 2016-08-04 03:18 | NUR ---
PAIN Pt complained of generalized pain 09/16. Administered 1) [place]. Resting with eyes closed. Will continue to monitor.
[2016-08-04 04:46] VITALS: BP 139/77; PULSE 66; RESP 18; O2SAT 94
--- NOTE | 2016-08-04 05:17 | NUR ---
BP Pt BP 199/80. notified. No new orders. Rechecked: 139/77. Will continue to monitor
[2016-08-04] MEDS: Pantoprazole 40 mg ER24 Tablet PO SCH (06:14)
[2016-08-04 06:45] LABS: BASOPHILS % (AUTO) 0.4 % (0-3); EOSINOPHILS % (AUTO) 4.3 % (0-5); MONOCYTES % (AUTO) 12.1 % (4-12); Mean Corpuscular Volume 88.3 fL (81-100); NEUTROPHILS % (AUTO) 70.1 % (40-74); Platelet Count 247 bil/L (150-400)
[2016-08-04 07:06] LABS: Magnesium 1.5 mg/dL (1.6-2.6); Phosphorus 3.2 mg/dL (2.5-4.9)
[2016-08-04] MEDS: guaiFENesin DM 200-20 mg/10 mL Syrup PO PRN (07:55)
[2016-08-04] MEDS: Ondansetron 2 mg/mL 2 mL Inj IVPUSH PRN (07:55)
--- NOTE | 2016-08-04 10:31 | NUR ---
Evaluation completed. Please go to "Notes" then click on "Assessments and Notes" (bottom left corner of screen). Then select appropriate discipline tab on top of screen.
--- NOTE | 2016-08-04 11:07 | PCM.DIMED ---
Discharge Instructions Date of Service Aug 04, 2016 Dates of Hospitalization Aug 02, 2016 at 17:41 Discharge Diagnosis Discharge Diagnosis Prolonged constitutional symptoms post influenza virus infection or probable adverse effect of Tamiflu uncomplicated cystitis Medication Instructions please take bactrim twice a day for 3days given urine infection Diet Heart Healthy Activity No restrictions Call your provider Vomitting, Excessive diarrhea Patient Instructions You were hospitalized with multitude of symptoms, after you confirmed with flu infection, you were monitor closely with supportive treatment. Please note that antibiotics were not given due to low suspicion for post flu pneumonia. Follow-up plan These follow with your doctor in 2 weeks Follow-up Provider: Eh Kirk MD Follow-up with PCP in: 2 weeks Bradley Herrera MD Aug 04, 2016 11:06
--- NOTE | 2016-08-04 11:31 | NUR ---
Social Work: Discharge Data: Pt is on day 2 of hospitalization. EMR reviewed, pt discussed in rounds. D/C orders are in. PT recommending home. IRISH MOSS BLEACHER called [facility] who states no need for assessment before pt returns. IRISH MOSS BLEACHER called pt's daughter who states that transportation can be set up through [facility]. IRISH MOSS BLEACHER called [facility] and they will be at hospital to hot die picker pt at 12:00noon today and will be waiting for pt in the main lobby on the first floor with a wheel chair van. No further d/c planning needs. IRISH MOSS BLEACHER will continue to follow if needs arise. Assessment: Pt from [facility]. Plan: Pt will d/c back to [facility] at 12:00noon today. [facility] transportation will be waiting for pt in the main lobby on the first floor with a wheel chair van. No further d/c planning needs. IRISH MOSS BLEACHER will continue to follow if needs arise. JONAS Grayson
[2016-08-04 11:56] LABS: APPEARANCE,URINE HAZY (CLEAR,HAZY); COLOR,URINE STRAW (YELLOW)
[2016-08-04 11:57] LABS: OCCULT BLOOD,URINE MODERATE (NEGATIVE); UROBILINOGEN,URINE NORMAL (NORMAL)
--- NOTE | 2016-08-04 12:08 | NUR ---
Discharge Discharge paper work, care notes reviewed and signature obtained. IV DCd intact, all belongings with pt. No s/sx of distress. [facility] transportation picked up at room, escorting to vehicle by at 1205. Transporting to [facility] assisted living.
[2016-08-04] MEDS ORDERED: SULF1TAB7 PO (15:04)
--- NOTE | 2016-08-04 15:14 | PCM.DC.MED ---
Discharge Summary Date of Service Aug 04, 2016 Dates of Hospitalization Date of Hospital Admission Aug 02, 2016 at 17:41 Date of Discharge: Aug 04, 2016 Providers: Admitting Physician: Bradley Andrews MD Primary Care Physician: Eh Kirk MD Attending Physician: Bradley Andrews MD Diagnosis at Time of Discharge Diagnosis at Time of Discharge Prolonged constitutional symptoms post influenza virus infection or probable adverse effect of Tamiflu uncomplicated cystitis hypokalemia, hypomag, due to GI loss, chronic, stable IBS, CD s/p bowel resection, afib s/p ablation not AC Hypothyroid Hyperlipidemia GERD Procedures XRay, CTs & MRIs PROCEDURE: CT ABDOMEN AND PELVIS WITHOUT CONTRAST ([id number]) INDICATIONS: abdominal pain LLQ TECHNIQUE: Noncontrast 5 mm thick sections acquired from the diaphragms to the symphysis. 5 mm coronal and sagittal reformats were then performed. For radiation dose reduction, the following was used: automated exposure control, adjustment of mA and/or kV according to patient size. COMPARISON: None. FINDINGS: Image quality: ABDOMEN: Lung bases: Patchy airspace opacities are present in the dependent lung bases bilaterally. Solid organs: Liver and spleen are normal in size. There is likely intrahepatic biliary ductal dilatation which is poorly characterized given the lack of intravenous contrast. Gallbladder is surgically absent. Pancreas is normal in contours. No adrenal nodules. Kidneys are normal in size, without hydronephrosis or nephrolithiasis. Peritoneum and bowel: Unenhanced bowel loops demonstrate normal wall thickness and caliber. The appendix is not visualized; however surgical clips are present in the region of the cecum in the lower quadrant suggesting prior appendectomy. There are scattered sigmoid diverticula. No evidence for diverticulitis. No free fluid or air. Nodes and vessels: No retroperitoneal or mesenteric adenopathy by size criteria. Aorta and inferior vena cava are normal in caliber. There are scattered atheromatous calcifications throughout the aorta and iliac arteries bilaterally. Miscellaneous: No ventral hernias. PELVIS: Genitourinary: Bladder wall thickness is normal. Miscellaneous: No inguinal hernias or adenopathy. Bones: No suspicious bony lesions. No vertebral body compression fractures. IMPRESSION: 1. Patchy opacities in the dependent lung bases suspicious for aspiration/ infection. 2. Findings suspicious for intrahepatic biliary ductal dilatation poorly characterized given the lack of intravenous contrast. If further characterization is warranted, right upper quadrant ultrasound is recommended. 3. Probable prior appendectomy. Diverticulosis. No acute diverticulitis. Dictated by: Maryann Lewis M.D. on 08/02/2016 at 17:15 Approved by: Maryann Lewis M.D. on 08/02/2016 at 17:20 Other Diagnostics PROCEDURE: X-RAY CHEST ONE VIEW, PORTABLE ([id number]) INDICATIONS: leukocytosis TECHNIQUE: One view of the chest was acquired. COMPARISON: [facility], CR, XR CHEST 1VW (PORTABLE), 07/28/2016, 16: 59. FINDINGS: Surgical changes and devices: None visible. Lungs and pleura: No pleural effusions or pneumothorax. Lungs are clear. No granulomatous changes redemonstrated. Mediastinum: Mediastinal contours appear normal. Heart size is normal. Bones and chest wall: No suspicious bony lesions. Overlying soft tissues appear unremarkable. IMPRESSION: No acute cardiopulmonary disease. Dictated by: Сергей Walker RRA Interpreted: Blanca Arnold MD on 08/02/2016 at 14:47 Transcribed by: MARJORIE on 08/02/2016 at 14:47 Approved by: Blanca Arnold MD, PhD on 08/02/2016 at 17:05 Brief History History and physical exam performed by 08/02 85-year-old female w/ afib s/p ablation not AC, Crohn's disease s/p multiple bowel resections >20yrs ago, irritable bowel syndrome with chronic intermittent diarrhea presented constellation symptoms such as generalized weakness, LLQ pain , decreased appetite, diarrhea Patient visited ED 5days ago with flu-like symptoms that started 2 days prior to visit. She also complains of myalgias, fever, cough, and fatigue at that time , noticed in [place] A virus positive on swap, sent home with Tamiflu for 5 days. Since then patient has not been feeling well, developed diarrhea more than usual, also this AM, large amount, unknown characteristics. Patient also had intermittent cough, no phlegm, no difficulty breathing. Patient thinks that the cough has not been changed with the flu medicine. ROS: Patient denied chills fevers, nausea, vomiting, abdominal pain, dysuria/ frequency Emergency room, VS stable, BC544x, HR70s, RR18, 97%on RA, afebrile. labs showed leukocytosis, hypokalemia, hypomagnesemia, mildly elevated lactate, CT abd obtained given LLQ pain pt complaind, which rather showes patchy infiltrate at lung bases, received Rocephin and azithromycin, KCL40. IVF started. Hospital Course 85-year-old female w/ afib s/p ablation not AC, Crohn's disease s/p multiple bowel resections >20yrs ago, irritable bowel syndrome with chronic intermittent diarrhea presented constellation symptoms such as generalized weakness, LLQ pain , decreased appetite, diarrhea, persistent cough, acute, active #constitutional sx, mainly GI n/v/d, also persistent cough/sputum, CT abd/ pelvis showed no signs of colitis. CXR showed bibasilar opacities atelectasis vs PNA. initially it was likely postflu PNA vs Tamiflu adverse reaction. However , pt was clinically stable with procalcitonin remained low, wbc trending down, remained afebrile, didn't show any GI complaints during hospitalization and pt finished Tamiflu prior to admission, also pt maintained airways, require minimal O2. although pt received Rocephin/azithromycin in ED, abx was not continued, pt clinically improved, which suggestive of possible adverse reaction to Tamiflu causing GI symptoms, dehydration. pt was eating well with good appetite upon d/c #hypokalemia, hypomag, POA, due to GI loss, s/p KCL40 in ED, EKG-afib, unchanged , normalized with repletion #dysuria due to cystitis, developed 08/04, repeat UA showed many bacteria/pyuria , will send bactrim upon d/c for 3days course. chronic, stable IBS, CD s/p bowel resection, benign abdomen on exam, CT abd no acute findings. afib s/p ablation not AC, seems persistent, monitor on telemetry. Hypothyroid, continue LT4 Hyperlipidemia, Hypertension, continue home med GERD, continue PPI Exam Vital Signs (Last) Date Time Temp Pulse Resp B/P Pulse Ox O2 Delivery O2 Flow Rate FiO2 08/04/16 04:46 36.2 66 18 139/77 94 Room Air Exam Frail elderly female comfortably laying down on the bed no JVD, MMM, no LAD RRR, nl s1, s2 no mrg Coarse breathing sounds, no wheezing/crackles S,ND,NT,normoactive BS+ warm, no edema, pulses 2/2 Test 1/24/17 13:45 08/03/16 05:55 08/04/16 06:15 08/04/16 11:32 Troponin T < 0.010ug/L (0.0-0.011) Hold Avila Top Tube Received (Received) Lactic Acid Level 1.0mmol/L (0.4-2.0) Procalcitonin 0.18ng/mL (See Comment) White Blood Count 7.9th/mm3 (3.8-10.1) Red Blood Count 3.86mil/mm3 (3.90-5.20) Hemoglobin 11.2g/dL (12.0-15.6) Hematocrit 34.1% (35.0-46.0) Mean Corpuscular Volume 88.3fL (81-100) Mean Corpuscular Hemoglobin 29.0pg (27.0-35.0) Mean Corpuscular Hemoglobin Concent 32.8% (32.0-37.0) Red Cell Distribution Width 13.5% (12.3-15.4) Platelet Count 247bil/L (150-400) Neutrophils (%) (Auto) 70.1% (40-74) Lymphocytes (%) (Auto) 12.5% (14-46) Monocytes (%) (Auto) 12.1% (4-12) Eosinophils (%) (Auto) 4.3% (0-5) Basophils (%) (Auto) 0.4% (0-3) Sodium Level 139mEq/L (134-144) Potassium Level 4.1mEq/L (3.5-5.2) Chloride Level 105mEq/L (97-108) Carbon Dioxide Level 23mmol/L (18-29) Blood Urea Nitrogen 8mg/dL (8-27) Creatinine 0.40mg/dL (0.57-1.00) Estimat Glomerular Filtration Rate 217mL/min (>59) Glucose Level 85mg/dL (60-99) Calcium Level 7.9mg/dL (8.5-10.1) Phosphorus Level 3.2mg/dL (2.5-4.9) Magnesium Level 1.5mg/dL (1.6-2.6) Total Bilirubin 0.3mg/dL (0.0-1.2) Aspartate Amino Transf (AST/SGOT) 16U/L (0-50) Alanine Aminotransferase (ALT/SGPT) 11U/L (0-32) Alkaline Phosphatase 74U/L (25-165) Total Protein 4.6g/dL (6.4-8.4) Albumin 2.6g/dL (3.4-5.0) Urine Color Straw (YELLOW) Urine Appearance Hazy (CLEAR,HAZY) Urine pH 6.0 (5.0-8.0) Urine Specific [place] 1.010 (1.003-1.035) Urine Protein Negativemg/dL (NEG,TRACE) Urine Glucose (UA) Negativemg/dL (NEGATIVE) Urine Ketones Negativemg/dL (NEGATIVE) Urine Occult Blood Moderate (NEGATIVE) Urine Nitrite Positive (NEGATIVE) Urine Bilirubin Negative (NEGATIVE) Urine Urobilinogen Normalmg/dL (NORMAL) Urine Leukocyte Esterase Negative (NEGATIVE) Urine RBC 0-2/hpf (0-2) Urine WBC >50/hpf (0-5) Urine Epithelial Cells Occasional/hpf (NONE-MOD) Urine Crystals None seen (NONE SEEN) Urine Bacteria Many/hpf (NONE-FEW) Urine Hyaline Casts None/lpf (NONE) Urine Granular Casts None seen (NONE SEEN) Urine Waxy Casts None seen (NONE SEEN) Urine Red Blood Cell Casts None seen (NONE SEEN) Urine White Blood Cell Casts None seen (NONE SEEN) Urine Mucus None seen (None Seen) Urine Trichomonas None seen (NONE SEEN) Urine Yeast None (NONE SEEN) Urinalysis Comment None Urine Culture Reflexed Indicated Discharge Medications Discharge Medications Aspirin (Aspirin) 81 Mg Tablet 81 MG PO DAILY (Reported) Calcium Carbonate/Mag Hydrox (Antacid Chewable Tablet) 1 Each Tab.chew 2 EACH PO BID (Reported) Cyanocobalamin (Vitamin B-12) (Vitamin B-12) 2,500 Mcg Tab.subl 2,500 MCG SL DAILY (Reported) Hydrocodone-Acetaminophen 5-325 mg (Hydrocodone-Acetaminophen 5-325 mg) 1 Each Tablet 1 TAB PO BID at 1400 and 2000 (Reported) Lactobacillus Combination No.4 (Probiotic) 1 Each Capsule 1 EACH PO DAILY ( Reported) Levothyroxine (Levothyroxine) 75 Mcg Tablet 37.5 MG PO DAILY (Reported) Lorazepam (Lorazepam) 0.5 Mg Tablet 0.5 MG PO HS (Reported) Melatonin/Pyridoxine (Melatonin 3 mg Tablet) 1 Each Tablet 1 EACH PO HS ( Reported) Methylcellulose (Citrucel) 500 Mg Tablet 500 MG PO DAILY (Reported) Omeprazole (Omeprazole) 20 Mg Capsule.dr 20 MG PO DAILY (Reported) Sulfamethoxazole/Trimeth 800-160 mg (Bactrim DS) 1 Each Tablet 1 TABLET PO BID Prescribed by: BRADLEY ANDREWS MD As needed Acetaminophen (Acetaminophen) 500 Mg Tablet 500 MG PO q8 PRN PRN For Pain ( Reported) Calcium Carbonate/Mag Hydrox (Antacid Chewable Tablet) 1 Each Tab.chew 1 EACH PO DAILY PRN PRN For Dyspepsia or Heartburn (Reported) Docusate Sodium (Colace) 100 Mg Capsule 250 MG PO DAILY PRN PRN For Constipation (Reported) Hydrocodone-Acetaminophen 5-325 mg (Hydrocodone-Acetaminophen 5-325 mg) 1 Each Tablet 1 TABLET PO q6 hours PRN PRN For Pain (Reported) Ibuprofen (Ibuprofen) 200 Mg Capsule 200-400 MG PO q6 hours PRN PRN Headache ( Reported) Loperamide (Loperamide) 2 Mg Capsule 2 MG PO Q4H PRN PRN For Diarrhea or Loose Stool (Reported) give one capsule after each loose stool Lorazepam (Lorazepam) 1 Mg Tablet 0.5 MG PO q8 hours PRN PRN For Anxiety ( Reported) Ondansetron ODT (Zofran ODT) 4 Mg Tablet 4 MG PO QID PRN PRN For Nausea Prescribed by: MONICA SWANSON DO Polyethylene Glycol 3350 (Miralax) 17 Gm Powd.pack 17 GM PO DAILY PRN PRN For Constipation (Reported) Additional med instructions please take bactrim twice a day for 3days given urine infection Followup Plan Disposition: assisted living facility Follow-up plan These follow with your doctor in 2 weeks Discharge Diet: Heart Healthy Discharge Activity: No restrictions Patient Instructions You were hospitalized with multitude of symptoms, after you confirmed with flu infection, you were monitor closely with supportive treatment. Please note that antibiotics were not given due to low suspicion for post flu pneumonia. Follow-up Provider: Eh Kirk MD Follow-up with PCP in: 2 weeks Time spent 65min Bradley Andrews MD Aug 04, 2016 15:13
== END 2016-08-04 12:06 | DRG 641 ==
LOC: EDUNIT# 13:23 → EDBD 13:23 → SED 13:23 → MPC 17:41 → OBSVTOIN 17:41
PROVIDERS: ADMIT Internal Medicine; ATTEND Internal Medicine
DX: E86.0 Dehydration (principal); R11.2 Nausea with vomiting, unspecified; E87.6 Hypokalemia; F03.90 Unspecified dementia, unspecified severity, without behavioral disturbance, psychotic disturbance, mood disturbance, and anxiety; E83.42 Hypomagnesemia; K21.9 Gastro-esophageal reflux disease without esophagitis; E03.9 Hypothyroidism, unspecified; E78.5 Hyperlipidemia, unspecified; I10 Essential (primary) hypertension; Z79.82 Long term (current) use of aspirin; M19.90 Unspecified osteoarthritis, unspecified site; T37.5X5A Adverse effect of antiviral drugs, initial encounter; Y92.009 Unspecified place in unspecified non-institutional (private) residence as the place of occurrence of the external cause; Z91.81 History of falling

== ENCOUNTER 2016-08-31 07:45 | Emergency (ER) | payer MEDICARE, OTHER ==
[~2016-08-31] VITALS: Ht 157.5 cm; Wt 56.6 kg
[~2016-08-31 07:45] MED LIST changes: -AMOX-366 PO; +CALC-846 PO; -CALC500T9 PO; -CALC600T12 PO; -CHOL100045 PO; -CRAN1TAB5 PO; +HYDR-4003 PO; +IBUP200C PO; -LEVO50TA83 PO; +LEVO75TA4 PO; -LIDO700A6 TP; +LORA1TAB PO; +MELA1TAB11 PO; +OMEP20CA11 PO; -SENN8.6C6 PO; +SULF1TAB7 PO
[2016-08-31 07:47] VITALS: BP 181/85; PULSE 81; RESP 18; O2SAT 97
--- NOTE | 2016-08-31 08:11 | ED.REPORT ---
HPI-Trauma Minor / Fall Date of Service Aug 31, 2016 ED Provider: Maggi Mendoza MD Patient is a 85 year old female w/ a hx of dementia, diverticulitis, hypertension, and chronic atrial fibrillation who presents to the ED via EMS from [facility] due to a ground level fall this morning. Her daughter relays that she fell out of bed and hit her head. Patient is unable to give hx or ROS. Patient has a history of Crohn's disease. Nursing Notes Stated Complaint: GLF Chief Complaint: Multiple Trauma/Fall Nursing Notes Reviewed: Yes Allergies: Coded Allergies: alendronate sodium (Verified Allergy, Severe, 01/07/15) iodine (Verified Allergy, Severe, 01/07/15) promethazine (Verified Allergy, Severe, 01/07/15) vitamin E (d-alpha tocopherol) (Verified Allergy, Severe, 01/07/15) Can take internally, but not on the skin Shellfish (Verified Allergy, Intermediate, vomiting, 01/07/15) asparagus (Verified Allergy, Mild, Nausea,Vomiting, 01/07/15) SOAPCLEAN (Verified Allergy, Unknown, 01/07/15) etodolac (Verified Allergy, Unknown, 01/07/15) formaldehyde (Verified Allergy, Unknown, 01/07/15) oxycodone HCl (Verified Allergy, Unknown, nausea and vomiting, 01/07/15) acetaminophen (Verified Adverse Reaction, Intermediate, nausea and vomiting, 01/07/15) Uncoded Allergies: Clorox (Allergy, Intermediate, Rash, 03/24/11) Harsh Detergents (Allergy, Mild, Rash, 03/24/11) SHRIMP (Allergy, Unknown, 01/06/15) SOAPS (Allergy, Unknown, 01/06/15) Scheduled Aspirin (Aspirin) 81 Mg Tablet 81 MG PO DAILY Calcium Carbonate/Mag Hydrox (Antacid Chewable Tablet) 1 Each Tab.chew 2 EACH PO BID Cyanocobalamin (Vitamin B-12) (Vitamin B-12) 2,500 Mcg Tab.subl 2,500 MCG SL DAILY Hydrocodone-Acetaminophen 5-325 mg (Hydrocodone-Acetaminophen 5-325 mg) 1 Each Tablet 1 TAB PO BID at 1400 and 2000 Lactobacillus Combination No.4 (Probiotic) 1 Each Capsule 1 EACH PO DAILY Levothyroxine (Levothyroxine) 75 Mcg Tablet 37.5 MG PO DAILY Lorazepam (Lorazepam) 0.5 Mg Tablet 0.5 MG PO HS Melatonin/Pyridoxine (Melatonin 3 mg Tablet) 1 Each Tablet 1 EACH PO HS Methylcellulose (Citrucel) 500 Mg Tablet 500 MG PO DAILY Omeprazole (Omeprazole) 20 Mg Capsule.dr 20 MG PO DAILY Sulfamethoxazole/Trimeth 800-160 mg (Bactrim DS) 1 Each Tablet 1 TABLET PO BID Scheduled PRN Acetaminophen (Acetaminophen) 500 Mg Tablet 500 MG PO q8 PRN PRN For Pain Calcium Carbonate/Mag Hydrox (Antacid Chewable Tablet) 1 Each Tab.chew 1 EACH PO DAILY PRN PRN For Dyspepsia or Heartburn Docusate Sodium (Colace) 100 Mg Capsule 250 MG PO DAILY PRN PRN For Constipation Hydrocodone-Acetaminophen 5-325 mg (Hydrocodone-Acetaminophen 5-325 mg) 1 Each Tablet 1 TABLET PO q6 hours PRN PRN For Pain Ibuprofen (Ibuprofen) 200 Mg Capsule 200-400 MG PO q6 hours PRN PRN Headache Loperamide (Loperamide) 2 Mg Capsule 2 MG PO Q4H PRN PRN For Diarrhea or Loose Stool give one capsule after each loose stool Lorazepam (Lorazepam) 1 Mg Tablet 0.5 MG PO q8 hours PRN PRN For Anxiety Ondansetron ODT (Zofran ODT) 4 Mg Tablet 4 MG PO QID PRN PRN For Nausea Polyethylene Glycol 3350 (Miralax) 17 Gm Powd.pack 17 GM PO DAILY PRN PRN For Constipation General Time Seen by MD: 08:10 Chief Complaint Fall Hx Obtained From: Daughter, Other family... Arrived By: Ambulance Onset Occurred: Just prior to arrival Symptom Duration: Since onset Caused by: Fall on ground Location: Head Severity: Current: Mild Past Medical History Past Medical History Notes: PCP: Dr. Calvillo DNR limited Past Medical History Dementia Hx of falls Crohn's Disease IBS Anxiety Arthritis Vitamin B12 deficiency. Vitamin B12 level 157.9 (June 28, 2011). Hypothyroid Reports: GERD, Hyperlipidemia, Hypertension Reports: Atrial fibrillation, Thyroid disease Past Surgical History Cath ablation for PSVT Partial bowel resection Reports: Appendectomy, Cholecystectomy Smoking History Never Smoker Social History Alcohol Use: Denies alcohol use Drug Use: Denies drug use Other Social History: Lives in [place] Ambulatory Status Independent Review of Systems Unable to Obtain ROS Patient condition, Mental status Physical Exam Initial Vital Signs Vital Signs (First) Date Time Temp Pulse Resp B/P Pulse Ox O2 Delivery O2 Flow Rate FiO2 08/31/16 07:47 36.4 81 18 181/85 97 Room Air Initial VS: Reviewed ENT: Mucous membranes moist, Conjunctiva normal, No scleral icterus Respiratory: Breath sounds normal, Clear to auscultation, No respiratory distress Cardiovascular: Regular rate & rhythm, Heart sounds normal, Intact distal pulses Skin: Warm, Dry, No cyanosis Alertness: Positive: Somnolent Trauma - Neck Specific: Positive: Immobilized - C Collar tenderness midline C4 and C5 Head / Eyes: Normocephalic Trauma - General: Positive: Laceration (1.5 cm laceration to front part of scalp) Tenderness/Guarding/Rebound: Positive: Tender LLQ... (Mild) LLQ mildly tender with good bowel tones Right Upper Arm: Positive: Tenderness present... bruises on both elbows and right upper arm Trauma / Burn / Environmental: Positive: Abrasion (and bruise to right knee) left knee has a healing bruise blood capillary refill but no distal pulses tender on left hip with pelvic manipulation Interpretation & Diagnostics X-Ray Abdominal Interpretation IMPRESSION: No trauma found. Dictated by: Perry Velasco M.D. on 08/31/2016 at 10:10 Approved by: Perry Velasco M.D. on 08/31/2016 at 10:11 Study: 2 view Interpretation / Wet Read by: Interpret - Radiologist X-Ray C-Spine Interpretation IMPRESSION: No cervical fracture or traumatic subluxation found. Incidental note made of faint area of alveolar air space infiltration in medial left apex, present at least since July 2011. Very slow pipe changer time is noted, multiple cervical CT scans have been obtained over the years and this area could be further assessed during anticipated followup CT scanning. Dictated by: Perry Velasco M.D. on 08/31/2016 at 9:33 Approved by: Perry Velasco M.D. on 08/31/2016 at 9:43 Study: Portable AP view Interpretation / Wet Read by: Interpret - Radiologist CT Head Interpretation IMPRESSION: 1. No acute intracranial process. 2. Moderate atrophy and chronic microvascular ischemic changes. Dictated by: Shu Kern M.D. on 08/31/2016 at 11:02 Approved by: Shu Kern M.D. on 08/31/2016 at 11:06 Study: Head CT no contrast Interpretation / Wet Read by: Interpret - Radiologist Procedures Laceration Management Time: 11:44 Procedure Performed by: ED physician Consent / Setup / Site Prep: Consent from guardian Location of Wound: right frontal scalp Wound Length: 1 cm Repair Skin: Dermabond Post-Procedure / Complications: Antibiotic oint applied, No complications, Condition improved, Tolerated procedure well, Patient stable Re-Eval/Medical Decision Counseled Regarding: Diagnosis, Lab results, Need for follow-up, When/why to return to ED Discharge & Departure Impression: Primary Impression: Scalp laceration Encounter type: initial encounter Qualified Code: S01.01XA - Laceration without foreign body of scalp, initial encounter Disposition: Home Discharge Condition All VS Reviewed: Yes Condition: Stable Additional Instructions: After reviewing your mother's imaging, there were no signs of any head bleed or acute trauma. Pelvis and hip xrays are normal as well. We repaired the scalp laceration with Dermabond, so there will be no need to have any stitches removed. Michelle can still take showers and let water run over the wound, just don't scrub at it. Take Tylenol as needed for pain. Return to the Emergency Department if you experience any new or worsening symptoms. We hope you feel better! Referrals: Eh Kirk MD (PCP) Scribe Attestation Portion of this note were transcribed by Umu Galeana. I, Dr. Mendoza, personally performed the history, physical exam, and medical decision-making: I reviewed and confirmed the accuracy for the information in the transcribed note. Signed by: simona Whyte, 08/31/16 1000 copies to: Eh Kirk MD, Shawna L MD Aug 31, 2016 08:11 UMU GALEANA Aug 31, 2016 08:52
[2016-08-31] MEDS ORDERED: Tissue Adhesive Liq (CS Supplied) TOPICAL ONE (09:05)
--- NOTE | 2016-08-31 09:54 | DRSVH ---
PROCEDURE: CT CERVICAL SPINE WITHOUT CONTRAST ([id number]) INDICATIONS: fall TECHNIQUE: Noncontrast 3 mm thick sections acquired from the skull base to the T4 level. Sagittal and coronal r eformats were then constructed. For radiation dose reduction, the following was used: automated exp osure control, adjustment of mA and/or kV according to patient size. COMPARISON: [facility], CT, C[facility]SPINE W/O CONTRAST[facility], 08/[facility]/2011, 17:43. [facility], CT, C-SPINE W/O CONTRAST, , 12:06. [facility], CT, C-SPINE W/O CONTRAST, 11/21/2007, 15:46. [facility], CT, CT CERVICAL SPINE WO CON, 07/01/2015, 11:55. FINDINGS: Image quality: Excellent. Bones: No fractures or dislocations. Visualized superior ribs are intact. Soft tissues: Prevertebral soft tissues are normal in thickness. No paravertebral hematomas. No ap ical pneumothoraces, but there is a subtle area of alveolar infiltration at the medial left apex, pre sent on multiple prior cervical spine CT scans and present at least since July 2011. IMPRESSION: No cervical fracture or traumatic subluxation found. Incidental note made of faint area of alveolar air space infiltration in medial left apex, present at least since July 2011. Very slow price changer time is noted, multiple cervical CT scans have been obtained over the years and this area could be further assessed during anticipated followup CT scann ing. Dictated by: Perry Velasco M.D. on 08/31/2016 at 9:33 Approved by: Perry Velasco M.D. on 08/31/2016 at 9:43
--- NOTE | 2016-08-31 10:12 | DRSVH ---
PROCEDURE: X-RAY PELVIS W/LAT HIP (LT) ([id number]) INDICATIONS: fall TECHNIQUE: AP pelvis with lateral view(s) of the left hip. COMPARISON: [facility], , PELVIS W/LAT HIP (LT) (PNL), 01/06/2015, 22:18. FINDINGS: Bones: No fractures or dislocations. Pelvic ring appears intact. No suspicious bony lesions. Soft tissues: The visualized bowel gas pattern is normal. No suspicious soft tissue calcifications. IMPRESSION: No trauma found. Dictated by: Perry Velasco M.D. on 08/31/2016 at 10:10 Approved by: Perry Velasco M.D. on 08/31/2016 at 10:11
[2016-08-31 11:06] VITALS: BP 171/95; PULSE 87; RESP 17; O2SAT 97
--- NOTE | 2016-08-31 11:08 | DRSVH ---
PROCEDURE: CT BRAIN WITHOUT CONTRAST ([id number]) INDICATIONS: fall TECHNIQUE: Noncontrast 4.5 mm thick angled axial sections acquired from the foramen magnum to the vertex, with c oronal reformats. COMPARISON: [facility], CT, CT BRAIN WO CON, 04/21/2016, 4:03. FINDINGS: Image quality: Excellent. CSF spaces: Basal cisterns are patent. No extra-axial fluid collections. The ventricles are symmet vahe in size and shape. Brain: No intracranial bleeds or masses. There is cerebral volume loss for age, with resultant vent ricular and sulcal prominence. There are periventricular and deep white matter chronic small vessel ischemic changes. There is intracranial internal carotid artery atherosclerosis. Skull and face: Calvarium and visualized facial bones appear intact, without suspicious lesions. Sm all laceration is noted within the soft tissues of the forehead. Sinuses: There is complete opacification of the right maxillary sinus, unchanged. IMPRESSION: 1. No acute intracranial process. 2. Moderate atrophy and chronic microvascular ischemic changes. Dictated by: Shu Kern M.D. on 08/31/2016 at 11:02 Approved by: Shu Kern M.D. on 08/31/2016 at 11:06
[2016-08-31 12:40] VITALS: BP 156/79; PULSE 71; RESP 17; O2SAT 99
== END 2016-08-31 12:40 | disposition home or self-care (01) ==
LOC: SED 07:45
DX: S01.01XA Laceration without foreign body of scalp, initial encounter (principal); W06.XXXA Fall from bed, initial encounter; Y93.89 Activity, other specified; Y92.122 Bedroom in nursing home as the place of occurrence of the external cause; Y99.8 Other external cause status; F03.90 Unspecified dementia, unspecified severity, without behavioral disturbance, psychotic disturbance, mood disturbance, and anxiety; I10 Essential (primary) hypertension; E78.5 Hyperlipidemia, unspecified; K21.9 Gastro-esophageal reflux disease without esophagitis; Z79.82 Long term (current) use of aspirin; Z88.5 Allergy status to narcotic agent; Z88.6 Allergy status to analgesic agent; Z88.8 Allergy status to other drugs, medicaments and biological substances; Z91.013 Allergy to seafood

== ENCOUNTER 2016-10-28 07:59 | Emergency (ER) | payer MEDICARE, OTHER ==
[~2016-10-28] VITALS: Ht 157.5 cm; Wt 53.6 kg
[2016-10-28 08:15] VITALS: BP 189/85; PULSE 64; RESP 18; O2SAT 97
--- NOTE | 2016-10-28 08:35 | ED.REPORT ---
HPI-Trauma Minor / Fall Date of Service Oct 28, 2016 ED Provider: Dr. Mendoza An 85 year old female with a history of back pain, insomnia, and dementia presents to the ED via EMS from [facility] in [facility] complaining of neck pain after she fell out of her bed and hit the side table wit her head, landing on her right side. She She denies any headache or LOC . Per nurse, she has a laceration on the back of her head, but denies any dizziness. At recheck, patient reports right knee pain. Patient's daughter reports that she was not complaining about knee pain before the fall occurred. Nursing Notes Stated Complaint: FELL OUT OF BED Chief Complaint: Multiple Trauma/Fall Nursing Notes Reviewed: Yes Allergies: Coded Allergies: alendronate sodium (Verified Allergy, Severe, 01/07/15) iodine (Verified Allergy, Severe, 01/07/15) promethazine (Verified Allergy, Severe, 01/07/15) vitamin E (d-alpha tocopherol) (Verified Allergy, Severe, 01/07/15) Can take internally, but not on the skin Shellfish (Verified Allergy, Intermediate, vomiting, 01/07/15) asparagus (Verified Allergy, Mild, Nausea,Vomiting, 01/07/15) SOAPCLEAN (Verified Allergy, Unknown, 01/07/15) etodolac (Verified Allergy, Unknown, 01/07/15) formaldehyde (Verified Allergy, Unknown, 01/07/15) oxycodone HCl (Verified Allergy, Unknown, nausea and vomiting, 01/07/15) Uncoded Allergies: Clorox (Allergy, Intermediate, Rash, 03/24/11) Scheduled Aspirin (Aspirin) 81 Mg Tablet 81 MG PO DAILY Calcium Carbonate/Mag Hydrox (Antacid Chewable Tablet) 1 Each Tab.chew 2 EACH PO BID Cyanocobalamin (Vitamin B-12) (Vitamin B-12) 2,500 Mcg Tab.subl 2,500 MCG SL DAILY Hydrocodone-Acetaminophen 5-325 mg (Hydrocodone-Acetaminophen 5-325 mg) 1 Each Tablet 1 TAB PO BID at 1400 and 2000 Lactobacillus Combination No.4 (Probiotic) 1 Each Capsule 1 EACH PO DAILY Levothyroxine (Levothyroxine) 75 Mcg Tablet 37.5 MG PO DAILY Lorazepam (Lorazepam) 0.5 Mg Tablet 0.5 MG PO HS Melatonin/Pyridoxine (Melatonin 3 mg Tablet) 1 Each Tablet 1 EACH PO HS Methylcellulose (Citrucel) 500 Mg Tablet 500 MG PO DAILY Omeprazole (Omeprazole) 20 Mg Capsule.dr 20 MG PO DAILY Sulfamethoxazole/Trimeth 800-160 mg (Bactrim DS) 1 Each Tablet 1 TABLET PO BID Scheduled PRN Acetaminophen (Acetaminophen) 500 Mg Tablet 500 MG PO q8 PRN PRN For Pain Calcium Carbonate/Mag Hydrox (Antacid Chewable Tablet) 1 Each Tab.chew 1 EACH PO DAILY PRN PRN For Dyspepsia or Heartburn Docusate Sodium (Colace) 100 Mg Capsule 250 MG PO DAILY PRN PRN For Constipation Hydrocodone-Acetaminophen 5-325 mg (Hydrocodone-Acetaminophen 5-325 mg) 1 Each Tablet 1 TABLET PO q6 hours PRN PRN For Pain Ibuprofen (Ibuprofen) 200 Mg Capsule 200-400 MG PO q6 hours PRN PRN Headache Loperamide (Loperamide) 2 Mg Capsule 2 MG PO Q4H PRN PRN For Diarrhea or Loose Stool give one capsule after each loose stool Lorazepam (Lorazepam) 1 Mg Tablet 0.5 MG PO q8 hours PRN PRN For Anxiety Ondansetron ODT (Zofran ODT) 4 Mg Tablet 4 MG PO QID PRN PRN For Nausea Polyethylene Glycol 3350 (Miralax) 17 Gm Powd.pack 17 GM PO DAILY PRN PRN For Constipation General Time Seen by MD: 08:35 Chief Complaint Fall Hx Obtained From: Patient, EMS Arrived By: Ambulance Onset Occurred: 1 - 4 hours ago Symptom Duration: Since onset Location: Neck Severity: Current: Moderate Severity: Maximum: Moderate Recent Healthcare: No recent doctor visit Similar Sx Previous: No Risk Factors Head CT Imaging Inclusion Criteria: >/= 16 yo age (age, on aspirin, point tenderness over cervical spine and tenderness with manipulation of skull) Past Medical History Past Medical History Notes: PCP: Dr. Calvillo DNR limited Past Medical History Dementia Hx of falls Crohn's Disease IBS Anxiety Arthritis Vitamin B12 deficiency. Vitamin B12 level 157.9 (June 28, 2011). Hypothyroid reflux insomnia back pain Denies Hx of [place] Left rotator cuff tear ED visit on 08/31/2016 Reports: GERD, Hyperlipidemia, Hypertension Reports: Atrial fibrillation, Thyroid disease Past Surgical History Cath ablation for PSVT Partial bowel resection Reports: Appendectomy, Cholecystectomy Smoking History Never Smoker Social History Alcohol Use: Denies alcohol use Drug Use: Denies drug use Other Social History: Lives in [place] [facility] Status Independent Review of Systems Review of Systems Note: medical record from [facility] reviewed. Denies any loss of conciousness. Laceration to head. Musculoskeletal: Reports: Neck pain Neurologic: Denies: Dizziness, Headache Complete sys rev & neg: except as marked. Physical Exam Initial Vital Signs Vital Signs (First) Date Time Temp Pulse Resp B/P Pulse Ox O2 Delivery O2 Flow Rate FiO2 10/28/16 08:15 36.4 64 18 189/85 97 Room Air Initial VS: Reviewed General/Constitutional: Awake, Alert Point tednerness at C2 midline. Head / Eyes: Normocephalic, PERRL, EOMI Small cut on back of head that looks more like partial scratch with little bit of bleeding, doesn't look full thickness or in need of stitches. ENT: Atraumatic, Mucous membranes moist Respiratory / Chest: Atraumatic, Breath sounds NL, Breath sounds = bilat, No respiratory distress, No rales, No rhonchi, No wheezing Cardiovascular: Heart rate NL, Regular rhythm, Heart sounds NL, No gallop, No murmurs, No rubs Abdomen: No guarding, No rebound Right elbow has nicely healing skin tear, no new bruises. Small brusing on left forearm. Right Knee: Positive: Tenderness present... (tenderness on lateral aspect of right knee. Ligaments are stable.) Skin: Warm, Dry No bruising down her back, no bruising over hips. Neurologic: Oriented X3, Speech NL Interpretation & Diagnostics CT Head Interpretation IMPRESSION: 1. No acute intracranial abnormality. 2. Moderate chronic white matter small vessel ischemic changes and cerebral volume loss redemonstrated. 3. Complete opacification of the right maxillary sinus again noted. Dictated by: Wilmer Wu M.D. on 10/28/2016 at 9:40 Approved by: Wilmer Wu M.D. on 10/28/2016 at 9:52 Interpretation / Wet Read by: Interpret - Radiologist CT C-Spine Interpretation IMPRESSION: 1. No acute fracture or subluxation. 2. 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 3. Multilevel degenerative changes redemonstrated. Dictated by: Wilmer Wu M.D. on 10/28/2016 at 9:52 Approved by: Wilmer Wu M.D. on 10/28/2016 at 10:01 Interpretation / Wet Read by: Interpret - Radiologist Re-Eval/Medical Decision Med Decision/Clinical Course 85-year-old woman who is minimally mobile. At most transfers to a wheelchair. Apparently fell out of bed she describes maybe a 2 foot fall. Landed on the back of her head in the right side of her body. Initially complaining of some head and neck pain. After CT scans done she did note some right knee pain as well. No intracranial hemorrhagecervical fractures small contusion that does not a laceration mild knee strain as she is nonmobile and nonweightbearing there is minimal effusion no bruising or contusion will not opt to x-ray this. On the CT scan for her cervical spine pulmonary nodule is noted in the lung apex. Concern for slow growing cancer. Her daughter who is medical power of senior trial attorney was not aware of this finding. In discussion with her we opted to treat this with benign neglect at this point. The daughter requested that mother not be informed. This is currently asymptomatic and neither the mother nor the daughter would want any treatment should be diagnosed as a true cancer Source of Hx: Old records ([facility]), EMS Re-Evaluation/Progress : Time of Eval: 10:09 Patient Status: Condition improved Re-Evaluation/Progress Note: Rechecked patient who is now accompanied by daughter and explained normal CT result. Explained that her neck is not broken. At recheck, patient reports right knee pain. Per daughter, the patient was not complaining about the knee pain before she fell. Explained test results, diagnosis and plan for discharge. Patient understands and agrees with the plan. All questions addressed. Counseled Regarding: Diagnosis, Lab results, Need for follow-up, When/why to return to ED Discharge & Departure Impression: Primary Impression: Fall Additional Impressions: Strain of right knee Lung mass Contusion of scalp Acute strain of neck muscle Ruled Out: Intracranial bleeding, Neck fracture Discharge Condition All VS Reviewed: Yes Condition: Improved Additional Instructions: You got lisa today with no broken bones. You do have a tiny cut on the back of your head that does not need stiches - please gently wash your hair today to get the blood out you got tylenol in the ER, you have tylenol, ibuprofen and vicodin available as needed at home and you can use these consider ice to the right knee for 20min 1-2 times a day for pain please be careful with falling, I don't want to see you back with broken parts! Referrals: Eh Kirk MD (PCP) Scribe Attestation Portions of this note were transcribed by Quinn Arnett. I, Dr. Mendoza personally performed the history, physical exam and medical decision-making; I reviewed and confirmed the accuracy of the information in the transcribed note. Signed by: Ashley Gibbs, 10/28/2016, 1026. copies to: Eh Kirk MD, Shawna L MD Oct 28, 2016 08:35 Quinn Arnett Oct 28, 2016 08:46
[2016-10-28 09:01] VITALS: BP 173/76; PULSE 89; RESP 16; O2SAT 100
--- NOTE | 2016-10-28 09:53 | DRSVH ---
PROCEDURE: CT BRAIN WITHOUT CONTRAST ([id number]) INDICATIONS: fall TECHNIQUE: Noncontrast 4.5 mm thick angled axial sections acquired from the foramen magnum to the vertex, with c oronal reformats. COMPARISON: [facility], CT, CT BRAIN WO CON, 08/31/2016, 9:05. FINDINGS: Image quality: Excellent. CSF spaces: Basal cisterns are patent. No extra-axial fluid collections. The ventricles are symmet vahe in size and shape. There is moderate cerebral volume loss, with resultant ventricular and sulcal prominence. Brain: No intracranial hemorrhage, mass, or mass effect. There are subcortical, periventricular and deep white matter hypodensities consistent with moderate chronic small vessel ischemic changes. The re is intracranial internal carotid artery atherosclerosis. Skull and face: Calvarium and visualized facial bones appear intact, without suspicious lesions. Sinuses: Visualized sinuses demonstrate complete opacification of the right maxillary sinus. The ma stoid air cells are clear. IMPRESSION: 1. No acute intracranial abnormality. 2. Moderate chronic white matter small vessel ischemic changes and cerebral volume loss redemonstrat ed. 3. Complete opacification of the right maxillary sinus again noted. Dictated by: Wilmer Wu M.D. on 10/28/2016 at 9:40 Approved by: Wilmer Wu M.D. on 10/28/2016 at 9:52
--- NOTE | 2016-10-28 10:03 | DRSVH ---
PROCEDURE: CT CERVICAL SPINE WITHOUT CONTRAST ([id number]) INDICATIONS: fall TECHNIQUE: Noncontrast 3 mm thick sections acquired from the skull base to the T4 level. Sagittal and coronal r eformats were then constructed. For radiation dose reduction, the following was used: automated exp osure control, adjustment of mA and/or kV according to patient size. COMPARISON: [facility], CT, C-SPINE W/O CONTRAST, 02/26/2013, 8:30. [facility], CT, CT CERVICAL SPINE WO CON, 08/31/2016, 9:05. FINDINGS: Image quality: There is mild motion artifact. Bones: No fractures or dislocations. There is minimal anterolisthesis at C5-C6 and C6-C7 which appe ar unchanged. There is multilevel mild to moderate disc space narrowing in the mid and lower cervica l spine. There is also multilevel moderate facet arthropathy. Visualized superior ribs are intact. Soft tissues: Prevertebral soft tissues are normal in thickness. No paravertebral hematomas. No ap ical pneumothoraces. There is an irregular region of groundglass and solid nodular opacity redemonst rated within the visualized left apex measuring up to 2.2 x 1.1 cm which has progressively increased in size compared to the prior studies. IMPRESSION: 1. No acute fracture or subluxation. 2. 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 3. Multilevel degenerative changes redemonstrated. Dictated by: Wilmer Wu M.D. on 10/28/2016 at 9:52 Approved by: Wilmer Wu M.D. on 10/28/2016 at 10:01
[2016-10-28 10:39] VITALS: BP 162/74; PULSE 81; RESP 18; O2SAT 100
== END 2016-10-28 10:40 | disposition home or self-care (01) ==
LOC: SED 07:59 → EDBD 07:59 → EDUNIT# 07:59 → SED 10:40
DX: S86.911A Strain of unspecified muscle(s) and tendon(s) at lower leg level, right leg, initial encounter (principal); S16.1XXA Strain of muscle, fascia and tendon at neck level, initial encounter; S00.03XA Contusion of scalp, initial encounter; W06.XXXA Fall from bed, initial encounter; Y93.89 Activity, other specified; Y92.89 Other specified places as the place of occurrence of the external cause; Y99.8 Other external cause status; R91.8 Other nonspecific abnormal finding of lung field; I11.9 Hypertensive heart disease without heart failure; I48.91 Unspecified atrial fibrillation; E03.9 Hypothyroidism, unspecified; E78.5 Hyperlipidemia, unspecified; K21.9 Gastro-esophageal reflux disease without esophagitis; Z79.82 Long term (current) use of aspirin; Z88.5 Allergy status to narcotic agent; Z88.8 Allergy status to other drugs, medicaments and biological substances; Z91.013 Allergy to seafood